=== PATIENT | male | born 1930 | race Caucasian/White ===

== ENCOUNTER 2016-12-20 01:11 | Inpatient (IN) | payer OTHER, BC ==
[2016-12-20] VITALS (7 sets, daily range): BP systolic 118–159; BP diastolic 54–89
[~2016-12-20] VITALS: Ht 193 cm; Wt 111.1 kg
--- NOTE | ~2016-12-20 | EKG ---
[address] [place] [address] ELECTROCARDIOGRAM REPORT Name: TINO ROMERO Room #: 460-P ADM IN M.R.#: [id number] Admission: 12/20/16 Attend Phys: Robi Resendez Discharge: Date of : 29 Report #: [id number] THIS REPORT FOR: //name// [facility] ED Test Date: 2016-12-20 Test Time: 01:29:05 Pat Name: TINO ROMERO Department: Room: [facility] Gender: M Director Employee Communications: [id number] : 1930 Requested By: Neri Rosas Order Number: [id number] MD: Luis Alberto Dick Measurements Intervals [place] Rate: 67 P: -8 [place]: 283 QRS: -42 QRSD: 145 T: 115 QT: 436 QTc: 461 Interpretive Statements Sinus rhythm Atrial premature complex Prolonged [place] interval Left bundle branch block Baseline wander in lead(s) V1 Compared to ECG 08/21/2016 11:09:28 Atrial premature complex(es) now present Ectopic atrial rhythm no longer present Ventricular premature complex(es) no longer present Electronically Signed On 12-20-2016 21:15:30 CDT by Luis Alberto Dick [email or web address] <ELECTRONICALLY SIGNED> By: Luis Alberto Dick MD 12/20/16 2115 8 8 Luis Alberto Dick MD /EPI
--- NOTE | ~2016-12-20 | H ---
[facility] [place] [address] HISTORY AND PHYSICAL Name: TINO ROMERO SOLIS Room #: 460-P ADM IN M.R.#: [id number] Admission: 12/20/16 Attend Phys: Robi Resendez Discharge: Date of : 29 Report #: [id number] THIS REPORT FOR: //name// CC: Charles Sethi DATE OF SERVICE: 12/20/2016 CHIEF COMPLAINT: Shortness of breath. HISTORY OF PRESENT ILLNESS: The patient is an 86-year-old gentleman with end-stage renal disease, who presented to the Emergency Room with shortness of breath. Symptoms began yesterday afternoon, when he just fell like he could not get a deep breath and was feeling weak. He could not lie flat in bed or on the couch and felt more short of breath and he had to sit up. He was breathing very heavily just walking across the room. It is noted that this is a acute change from baseline. He has been compliant with his 3 times a week dialysis by report and he also noted a slightly elevated blood pressure around 160/80 yesterday evening. He presented to the Emergency Room with chest x-ray has suggested pulmonary edema. 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 PAST SURGICAL HISTORY: He has had some orthopedic surgeries, cardiac bypass. Has had previous stents in 2004. He is an AV fistula. FAMILY HISTORY: Noncontributory. SOCIAL HISTORY: No known chronic alcohol or tobacco use. ALLERGIES: IODINE. MEDICATIONS: Zocor 10 mg, Plavix 75 mg, sodium bicarbonate 650 b.i.d., Colace, fish oil, Imdur 60 mg, Toprol-XL 25 mg, Renvela 800 mg with meals, Lantus 15 units at bedtime, vitamin C, Humalog 10-13 units with meals, Tylenol, tramadol 50 mg p.r.n. REVIEW OF SYSTEMS: Other than shortness of breath, denies headache, chest pain, abdominal pain, nausea, vomiting, diarrhea, constipation, dysuria, syncope or fall. PHYSICAL EXAMINATION: [facility] [address] [place] [address] HISTORY AND PHYSICAL Name: TINO ROMERO [facility] Room #: 460-P [facility] IN M.R.#: [id number] Admission: 12/20/16 Attend Phys: Robi Resendez Discharge: Date of : 29 Report #: [id number] VITAL SIGNS: Temperature 36.8, pulse 66, respirations 20, blood pressure 159/78, O2 sat 94% on 4 liters nasal cannula. GENERAL: He is awake and alert, in no distress. HEENT: Head and neck unremarkable. Somewhat hard of hearing. LUNGS: he has diminished breath sounds in the bases, clear to the upper bowen. HEART: Regular, no murmur. ABDOMEN: Soft, normoactive bowel sounds, obese. EXTREMITIES: No cyanosis, clubbing or edema. NEUROLOGIC: Global strength 4/5 throughout. LABORATORY DATA: Chest x-rays were reviewed. ASSESSMENT: 1. Acute pulmonary edema. 2. End-stage renal disease. 3. Pfelg-wl-ifzdjxf systolic congestive heart failure. 4. Cardiomyopathy, ejection fraction of 30-35%. 5. Diabetes type 2, insulin requiring. 6. Coronary artery disease. 7. Anemia of chronic disease. PLAN: He is on the schedule for dialysis today, it appears that he just has fluid overload. I think he has slightly elevated troponins and more likely related to heart failure, pulmonary edema and his renal disease. Continue home medications for now. <ELECTRONICALLY SIGNED> By: Johnie Moya MD 12/21/16 0929 0823 0909 Johnie Moya MD /nt
--- NOTE | ~2016-12-20 | HC ---
[facility] [place] [address] CONSULTATION Name: TINO ROMERO SOLIS Room #: 460-P [facility] IN M.R.#: [id number] Admission: 12/20/16 Attend Phys: Robi Resendez Discharge: Date of : 29 Report #: [id number] THIS REPORT FOR: //name// CC: Charles Campbell [facility] Drew Sethi DATE OF SERVICE: 12/20/2016 REASON FOR CONSULTATION: Volume overload with pulmonary edema in this patient with end-stage renal disease. HISTORY OF PRESENT ILLNESS: This 86-year-old male has been maintained on dialysis for approximately 3 years. He has an indwelling left upper arm AV fistula, but refuses to use this. He is dialyzed via a tunneled dialysis catheter. He usually dialyzes on Tuesday, Tuesday, and Tuesday at [facility]. The patient has been admitted previously in July of this year to [facility] for volume overload and respiratory insufficiency. He presented early on the day of admission with complaints of shortness of breath. Chest x-ray shows evidence of volume overload and he was admitted for further evaluation and treatment. The patient denies fevers, chills, sweats, productive cough, hemoptysis. He states that he has been eating regularly. He has been receiving his regular dialysis treatments as prescribed. PAST MEDICAL HISTORY: Remarkable for diabetes mellitus, TURP, coronary artery disease with previous stent placement. He has known dyslipidemia and an ischemic cardiomyopathy with an ejection fraction in the range of 30%. 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 MEDICATIONS ON ADMISSION: Include simvastatin, Plavix, sodium bicarbonate, Colace, fish oil, Imdur, Toprol, Renvela, Lantus, ascorbic acid, Humalog, Tylenol and Ultram. ALLERGIES: Reported to an antibacterial swab. He is unsure of the name. PERSONAL AND SOCIAL HISTORY: The patient does not smoke, use alcohol or have any history of substance abuse. FAMILY HISTORY: Remarkable for diabetes mellitus, but negative for renal disease. REVIEW OF SYSTEMS: Remarkable as described in the history of present illness. The patient denies fevers, chills, sweats or other constitutional complaints. He denies chest pain or palpitations. He denies nausea, vomiting, diarrhea or [address] [address] CONSULTATION Name: TINO ROMERO SOLIS Room #: 460-[facility] IN [facility]#: [id number] Admission: 12/20/16 Attend Phys: Robi Resendez Discharge: Date of : 29 Report #: [id number] constipation. PHYSICAL EXAMINATION: GENERAL: Reveals a well-developed, well-nourished male appearing his stated age, in no acute distress. VITAL SIGNS: Blood pressure 159/78, temperature 98.2, pulse 66. SKIN: Warm and dry without rash or erythema. There is no gross clubbing, cyanosis or adenopathy present. There is a trace of edema present. HEENT: The head is normocephalic and atraumatic. The sclerae are white. The pharynx is benign. NECK: Supple. LUNGS: Du reveal scattered rhonchi with minimal expiratory wheezes and basilar crackles bilaterally. CARDIAC: Reveals a regular rate and rhythm without rub. ABDOMEN: Soft and nontender, without palpable mass or organomegaly. NEUROLOGIC: Reveals the patient to be alert and cooperative with a nonfocal exam. LABORATORY STUDIES: Available at the time of consultation include sodium 138, potassium 6.1, chloride 101, CO2 27, BUN 93, creatinine 5.5, glucose 147. White blood cell count 9200, hemoglobin 10.9, hematocrit 32.1, platelet count 164,000. Chest x-ray reveals pulmonary vascular congestion with perihilar interstitial prominence consistent with mild congestive heart failure. ASSESSMENT: 1. End-stage renal disease, on maintenance hemodialysis. 2. Pulmonary vascular congestion with respiratory compromise in need of dialysis today. 3. Anemia of chronic kidney disease. 4. Diabetes mellitus. 5. Hypertension. PLAN: We will make arrangements for the patient to undergo emergent hemodialysis today. He is receiving respiratory treatments and supplemental oxygen. I expect his condition to improve promptly with dialysis today. Please see orders. <ELECTRONICALLY SIGNED> By: Drew Sethi MD 12/21/16 0607 0921 1153 Drew Sethi MD /nt
--- NOTE | ~2016-12-20 | D ---
[facility] [place] [address] DISCHARGE SUMMARY Name: TINO ROMERO SOLIS Room #: 460-P [facility] IN M.R.#: [id number] Admission: 12/20/16 Attend Phys: Robi Resendez Discharge: 12/21/16 Date of : 29 Report #: [id number] THIS REPORT FOR: //name// CC: Charles Sethi DATE OF SERVICE: 12/21/2016 FINAL DIAGNOSES: 1. Pulmonary edema. 2. End-stage renal disease. 3. Diabetes type 2. HOSPITAL COURSE: The patient was admitted with shortness of breath. X-ray revealed pulmonary edema. He was treated medically and stabilized overnight and then following day, he received hemodialysis. This improved his symptoms significantly. Oxygen was discontinued and he had an asymptomatic day and night following this. On the day of discharge, he was awake and alert with stable vital signs and O2 sats in the mid to upper 90s on room air. He felt like he was back to his baseline and wanted to return home. His usual scheduled dialysis is tomorrow. PHYSICAL EXAMINATION: LUNGS: Clear with no wheezing. HEART: Had regular sounds. ABDOMEN: Soft, obese. EXTREMITIES: Showed no edema. DISPOSITION: He will be discharged to home with diabetic renal diet and activity as tolerated, resume all same medications and his hemodialysis schedule and follow up with Dr. Campbell as needed. <ELECTRONICALLY SIGNED> By: Johnie Moya MD 12/22/16 1253 0943 1318 Johnie Moya MD /monse
[~2016-12-20 01:11] MED LIST: ACTOS15 MG PO; ADULT LOW DOSE81 MG PO; ALTACE10 M1 PO; AMARYL4 MG PO; AMINO-OPTI-C1000 MG PO; AMLODIPINE BESYL5 MG PO; ANTACID650 MG PO; APAP500 PO; ASCORBIC ACID500 MG PO; AUGMENTIN 875875 MG PO; CENTRUM SILVER1 EAC2 PO; CEPHALEXIN 250250 M1 PO; COLACE100 MG PO; DEX4 GLUCOSE1 EACH PO; FISH OIL 1,001000 M2 PO; FISHOIL PO; FUROSEMIDE 40 M40 M1 PO; HUMALOG100 UNIT/1 SUBQ; HYDROCODONE-AP1 EAC6 PO; IMDUR 30 MG TAB30 M1 PO; IMDUR 60 MG TAB60 M1 PO; LANTUS SC; LANTUS SUBQ; LANTUS100 UNIT/M SUBQ; LASIX PO; MULTIVITAMIN W1 EAC5 PO; NEPHRO-VITE RX1 TA1 PO; NEPHROCAPS SOFT1 CAP PO; NITROGLYCERIN0.4 MG SL; NORCO 5-325 TA1 EACH PO; NORVASC 5 MG TAB5 MG PO; NORVASC10 MG PO; NOVOLOG100 UNIT/1; NOVOLOG100 UNIT/1 SC; NOVOLOG100 UNIT/1 SUBQ; OXYCODONE HCL5 M1 PO; PENICILLIN VK500 M1 PO; PLAVIX 75 MG TA75 MG PO; RENVELA800 MG PO; TOPROL XL25 MG PO; TRAMADOL 50 MG50 MG PO; ULTRAM 50MG TAB50 MG PO; VITAMINC500 PO; XANAX 0.25 MG0.25 MG PO; ZETIA10 MG PO; ZOCOR 10 MG TAB10 M1 PO; ZOCOR 10 MG TAB10 MG PO; ZOCOR80 MG PO
[2016-12-20 01:34] LABS: ABG SAMPLE TYPE ARTERIAL; BE(vivo) -0.3 mmol/L (-2 to +3); HCO3 24.2 mmol/L (22.0-26.0); LACTATE 1.74 mmol/L (0.5-2.0); O2(CT) 15.9 mL/dL (15.0-23.0); O2Hb 97.4 % (92.0-98.0); PCO2 39.1 mmHg (35.0-45.0); PO2 117.6 mmHg (80.0-100.0); STICK SITE R.RADIAL; pH 7.409 (7.360-7.450); sO2 98.3 % (92.0-98.0); tCO2 25.4 mmol/L (24.0-30.0)
[2016-12-20 01:44] LABS: ABSOLUTE NEUTROPHILS 7.4 thou/uL (1.4-8.2); BASOPHILS 0.4 % (0.0-2.0); EOSINOPHILS 2.4 % (0.0-3.0); HEMATOCRIT 32.1 % (42.0-52.0); HEMOGLOBIN 10.9 gm/dL (14.0-18.0); LYMPHOCYTES 12.1 % (24.0-44.0); MCH 33.5 pg (26.0-34.0); MCHC 33.8 g/dL (28.0-37.0); MCV 99.2 fL (80.0-100.0); MONOCYTES 4.4 % (1.0-8.0); PLATELET COUNT 164 thou/uL (150-400); POLYS 80.7 % (36.0-66.0); RBC 3.24 mil/uL (4.50-6.00); RDW 14.9 % (10.5-14.5); WBC 9.2 thou/uL (4.0-11.0)
[2016-12-20 01:45] LABS: MANUAL DIFF NO
[2016-12-20 01:57] LABS: APTT 27.5 Seconds (24.5-32.8); PROTIME 10.7 Seconds (9.3-11.4)
[2016-12-20 02:11] LABS: ALBUMIN 3.2 g/dL (3.4-5.0); CALCIUM 9.1 mg/dL (8.5-10.1); CK-MB MASS 4.7 ng/mL (<0.5-3.6); CREATININE 5.5 mg/dL (0.7-1.3); MAGNESIUM 2.2 mg/dL (1.8-2.4); TOTAL BILIRUBIN 0.3 mg/dL (<0.1-1.0); TOTAL PROTEIN 6.8 g/dL (6.4-8.2); TROPONIN-I 0.13 ng/mL (<0.04-0.07)
[2016-12-20 02:13] LABS: POTASSIUM 6.1 mmol/L (3.5-5.1)
[2016-12-21 03:46] VITALS: BP 128/74
[2016-12-21 04:47] LABS: HEMOGLOBIN 10.5 gm/dL (14.0-18.0); MCHC 34.9 g/dL (28.0-37.0); MCV 97.6 fL (80.0-100.0); RBC 3.07 mil/uL (4.50-6.00); RDW 14.9 % (10.5-14.5); WBC 6.8 thou/uL (4.0-11.0)
[2016-12-21 04:55] LABS: ALBUMIN 3.1 g/dL (3.4-5.0); CALCIUM 8.9 mg/dL (8.5-10.1); PHOSPHORUS 4.1 mg/dL (2.5-4.9); POTASSIUM 4.8 mmol/L (3.5-5.1)
[2016-12-21 04:58] LABS: CREATININE 3.8 mg/dL (0.7-1.3)
[2016-12-21 07:46] VITALS: BP 94/52
[2016-12-21 09:37] VITALS: BP 94/52
== END 2016-12-21 10:34 | disposition home or self-care (01) | DRG 291 ==
LOC: ER 01:11 → EROBS 02:30 → 4W 02:30
PROVIDERS: Emergency Medicine; Internal Medicine Nephrology
PROC: 5A1D00Z (ICD-10-PCS; principal; 2016-12-20)
DX: I50.23 Acute on chronic systolic (congestive) heart failure (principal); N18.6 End stage renal disease; I13.2 Hypertensive heart and chronic kidney disease with heart failure and with stage 5 chronic kidney disease, or end stage renal disease; E11.22 Type 2 diabetes mellitus with diabetic chronic kidney disease; M19.90 Unspecified osteoarthritis, unspecified site; I25.10 Atherosclerotic heart disease of native coronary artery without angina pectoris; E78.5 Hyperlipidemia, unspecified; E87.5 Hyperkalemia; D63.1 Anemia in chronic kidney disease; I25.5 Ischemic cardiomyopathy; Z95.1 Presence of aortocoronary bypass graft; I25.2 Old myocardial infarction; Z89.439 Acquired absence of unspecified foot; Z87.81 Personal history of (healed) traumatic fracture; Z98.42 Cataract extraction status, left eye; Z79.4 Long term (current) use of insulin; Z99.2 Dependence on renal dialysis; Z98.41 Cataract extraction status, right eye; Z88.8 Allergy status to other drugs, medicaments and biological substances; Z98.62 Peripheral vascular angioplasty status; Z83.3 Family history of diabetes mellitus
CPT/HCPCS: 10045; 32100

== ENCOUNTER 2017-09-05 06:20 | Inpatient (IN) | payer OTHER, BC ==
[~2017-09-05] VITALS: Ht 190.5 cm; Wt 109.5 kg
--- NOTE | ~2017-09-05 | EKG ---
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 09/05/17 0747 0633 2 Tuan Muñoz MD, FACC /EPI
--- NOTE | ~2017-09-05 | D ---
[facility] [place] [address] DISCHARGE SUMMARY Name: TINO ROMERO Room #: 218-P [facility] IN M.R.#: [id number] Admission: 09/05/17 Attend Phys: Johnie Moya MD Discharge: Date of : 29 Report #: [id number] THIS REPORT FOR: //name// CC: Charles Moya FINAL DIAGNOSES: 1. Acute congestive heart failure. 2. End-stage renal disease. 3. Chronic obstructive pulmonary disease. 4. Diabetes type 2. HOSPITAL COURSE: The patient was admitted with pulmonary edema. He received hemodialysis, which seemed to resolve his symptoms. He had no other interval complications and usual home medications were continued. PHYSICAL EXAMINATION: GENERAL: On the day of discharge, he was awake and alert with stable vital signs. He was not requiring oxygen and was lying flat in bed. O2 sat 95% on room air. LUNGS: Clear. HEART: Regular. ABDOMEN: Soft, normoactive bowel sounds. EXTREMITIES: No edema. DISPOSITION: He will be discharged home with diet and activity as tolerated. Renal diabetic diet. Follow up with Dr. Campbell as needed, outpatient hemodialysis tomorrow. DISCHARGE MEDICATIONS: Same medicines plus Ventolin HFA 2 puffs q.6 hours p.r.n. <ELECTRONICALLY SIGNED> By: Johnie Moya MD 09/06/17 1322 0955 1025 Johnie Moya MD /nt
--- NOTE | ~2017-09-05 | H ---
[facility] [place] [address] HISTORY AND PHYSICAL Name: TINO ROMERO Room #: 218-P [facility] IN M.R.#: [id number] Admission: 09/05/17 Attend Phys: Johnie Moya MD Discharge: 09/06/17 Date of : 29 Report #: [id number] THIS REPORT FOR: //name// CC: Charles Moya DATE OF SERVICE: 09/05/2017 CHIEF COMPLAINT: Shortness of breath. HISTORY OF PRESENT ILLNESS: The patient is an 87-year-old gentleman with a history of end-stage renal disease, who came in to the Emergency Room with shortness of breath. It has been progressing over the weekend. He is denying any fever, chills, productive cough or weight gain. He went to his dialysis normally as an outpatient in [place], [place] on Tuesday. 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 He has had some toe amputations, remote history of nephropathy and history of [place]. PAST SURGICAL HISTORY: As above. FAMILY HISTORY: Noncontributory. SOCIAL HISTORY: He lives with his son. No chronic alcohol or tobacco use. ALLERGIES: IODINE. MEDICATIONS: Plavix, Colace, Humalog, Toprol, Imdur, Lantus, Keflex, folic acid, Zocor, sodium bicarbonate, Xanax, Tylenol and tramadol. REVIEW OF SYSTEMS: Denies headache, chest pain, shortness of breath, abdominal pain, nausea, vomiting, constipation, dysuria or syncope. PHYSICAL EXAMINATION: VITAL SIGNS: Temperature 36.9, pulse 81, respirations 16, blood pressure 153/84, O2 sat 97% on room air. GENERAL: He is awake and alert, in no distress. LUNGS: Clear. HEART: Regular. ABDOMEN: Soft. Normoactive bowel sounds. EXTREMITIES: No edema. LABS AND X-RAY: Reviewed. [facility] [place] [address] HISTORY AND PHYSICAL Name: TINO ROMERO Room #: 218-P [facility] IN M.R.#: [id number] Admission: 09/05/17 Attend Phys: Johnie Moya MD Discharge: 09/06/17 Date of : 29 Report #: [id number] ASSESSMENT: 1. End-stage renal disease. 2. Pulmonary edema. 3. Cardiomyopathy, ejection fraction 30%. 4. Coronary artery disease. 5. Diabetes type 2. 6. Chronic obstructive pulmonary disease. PLAN: He is undergoing hemodialysis currently. I will continue his home medications and get therapy involved. We will see if he can turn around for home soon. <ELECTRONICALLY SIGNED> By: Johnie Moya MD 09/21/17 1208 1252 1326 Johnie Moya MD /monse
--- NOTE | ~2017-09-05 | HC ---
[facility] [place] [address] CONSULTATION Name: TINO ROMERO Room #: 218-P [facility] IN M.R.#: [id number] Admission: 09/05/17 Attend Phys: Johnie Moya MD Discharge: 09/06/17 Date of : 29 Report #: [id number] THIS REPORT FOR: //name// CC: Charles Moya DATE OF SERVICE: 09/05/2017 REASON FOR CONSULTATION: End-stage renal disease and congestive heart failure. HISTORY OF PRESENT ILLNESS: An 87-year-old chronic dialysis patient, dialyzing 3 times a week at [place]. Last dialyzed 3 days ago. He became short of breath with orthopnea. He was brought up here to the emergency room instead of going to his dialysis treatment. He was found to have pulmonary edema and hyperkalemia. PAST MEDICAL HISTORY: End-stage renal disease, diabetes mellitus with triopathy including peripheral neuropathy, retinopathy, status post laser surgery. He has had previous transurethral resection of the prostate. He has had previous coronary artery disease with PCI and stent placement and ischemic cardiomyopathy and decreased ejection fraction previously documented to be 30% range. He has also had partial right foot amputation with osteomyelitis. HOME MEDICATIONS: As listed include calcium acetate 1 with meals t.i.d., apparently he has been on cephalexin, Plavix 75 mg daily, fish oil, insulin, metoprolol XL 25 mg daily, Renvela 1 with meals t.i.d., simvastatin 10 mg daily, bicarbonate tablets, and tramadol. FAMILY HISTORY: Positive for diabetes. SOCIAL HISTORY: No cigarettes or alcohol. REVIEW OF SYSTEMS: GENERAL: He has been feeling a bit poorly, short winded with decreased stamina. EYES: Vision is poor. ENT: Hearing is very poor. Swallows okay. No mouth ulcers. ENDOCRINE: Positive for diabetes. RESPIRATORY: Quite short-winded with orthopnea. GASTROINTESTINAL: No nausea, vomiting, diarrhea, or bloody stools. GENITOURINARY: Does not make much urine. NEUROLOGIC: He has got numbness and tingling and pain in his feet. physical examination: GENERAL: This is a somewhat ill-appearing, overweight gentleman, in no acute distress. SKIN: Unremarkable. [facility] [address] [place] [address] CONSULTATION Name: TINO ROMERO Room #: 218-P [facility] IN M.R.#: [id number] Admission: 09/05/17 Attend Phys: Johnie Moya MD Discharge: 09/06/17 Date of : 29 Report #: [id number] SKELETAL: Well developed, well nourished. HEENT: Extraocular movements are full. Vision is poor. Hearing is poor. Mucous membranes moist. NECK: Veins slightly distended. CHEST: Shows crackles at the lung bases. HEART: Regular. ABDOMEN: Soft and nontender. EXTREMITIES: Show no peripheral edema. Left arm fistula noted. NEUROLOGIC: Shows numbness of the distal lower extremities. LABORATORY DATA: Hemoglobin is 10.8. Sodium 139, potassium 6, chloride 104, bicarbonate 26, BUN 79, and creatinine 5.8. ASSESSMENT: 1. Heart failure with reduced ejection fraction, he is fluid overload, he is a dialysis patient and there is likely some dietary indiscretion. I will order ultrafiltration dialysis, reevaluate for possible dialysis again tomorrow. 2. Hyperkalemia. We will treat with a 2 potassium bath, I have already given him some albuterol inhalation treatment. EKG looked okay. 3. Diabetes mellitus with triopathy. 4. Ischemic cardiomyopathy with decreased ejection fraction. 5. History of hypertension. <ELECTRONICALLY SIGNED> By: Keven Schmid MD 09/09/17 0823 0955 1425 Keven Schmid MD /nt
[2017-09-05 06:22] VITALS: BP 155/69
[2017-09-05] MEDS ORDERED: KEFLEX250 MG PO (06:51)
[2017-09-05] MEDS ORDERED: [UNRECOGNIZED DRUG - OTHER] (06:51)
[2017-09-05] MEDS ORDERED: FOLIC ACID1 MG PO (06:52)
[2017-09-05] MEDS ORDERED: FISH OIL 1,001000 M2 PO (06:52)
[2017-09-05] MEDS ORDERED: NEPROVITE PO (06:55)
[2017-09-05] MEDS ORDERED: CALCIUM ACETAT667 M2 PO (06:58)
[2017-09-05] MEDS ORDERED: ZOCOR20 MG PO (07:00)
[2017-09-05] MEDS ORDERED: SODIUM BICARBO650 M3 PO (07:01)
[2017-09-05 07:15] LABS: ABSOLUTE NEUTROPHILS 7.4 thou/uL (1.4-8.2); EOSINOPHILS 0.8 % (0.0-3.0); HEMATOCRIT 31.8 % (42.0-52.0); HEMOGLOBIN 10.8 gm/dL (14.0-18.0); LYMPHOCYTES 9.3 % (24.0-44.0); MCH 33.7 pg (26.0-34.0); MCHC 33.8 g/dL (28.0-37.0); MCV 99.5 fL (80.0-100.0); PLATELET COUNT 149 thou/uL (150-400); POLYS 82.9 % (36.0-66.0); RDW 14.6 % (10.5-14.5); WBC 8.9 thou/uL (4.0-11.0)
[2017-09-05 07:22] LABS: CALCIUM 8.5 mg/dL (8.5-10.1); CREATININE 5.8 mg/dL (0.7-1.3)
[2017-09-05 07:30] LABS: TROPONIN-I 0.1 ng/mL (<0.06)
[2017-09-05 09:40] VITALS: BP 153/84
[2017-09-05] MEDS ORDERED: XANAX 0.25 MG0.25 MG PO (09:54)
[2017-09-05 10:13] VITALS: BP 154/70
[2017-09-05 15:21] VITALS: BP 137/70
[2017-09-05 19:11] VITALS: BP 152/78
[2017-09-06 00:11] VITALS: BP 129/79
[2017-09-06 03:47] VITALS: BP 140/61
[2017-09-06 03:50] LABS: CALCIUM 8.5 mg/dL (8.5-10.1); POTASSIUM 5.1 mmol/L (3.5-5.1)
[2017-09-06 03:51] LABS: CREATININE 4.3 mg/dL (0.7-1.3)
[2017-09-06 07:30] VITALS: BP 148/47
[2017-09-06] MEDS ORDERED: RENVELA800 MG PO (09:52)
[2017-09-06] MEDS ORDERED: ANTACID650 MG PO (09:52)
[2017-09-06] MEDS ORDERED: VENTOLIN HFA 1818 GM INH (09:52)
[2017-09-06] MEDS ORDERED: ZOCOR 10 MG TAB10 MG PO (09:52)
[2017-09-06 11:47] VITALS: BP 148/47
[2017-09-06 11:48] VITALS: BP 149/72
== END 2017-09-06 13:35 | disposition home or self-care (01) | DRG 291 ==
LOC: ER 06:20 → 2N 07:51 → EROBS 07:51 → 2N 11:57 → ENTRNSPT 09-06 13:25 → EDTRNSPTSTS 09-06 13:26 → 2N 09-06 13:35
PROVIDERS: Emergency Medicine; Internal Medicine Nephrology
PROC: 5A1D70Z Performance of Urinary Filtration, Intermittent, Less than 6 Hours Per Day (ICD-10-PCS; principal; 2017-09-05)
PROC: 5A1D70Z Performance of Urinary Filtration, Intermittent, Less than 6 Hours Per Day (ICD-10-PCS; 2017-09-06)
DX: I13.2 Hypertensive heart and chronic kidney disease with heart failure and with stage 5 chronic kidney disease, or end stage renal disease (principal); N18.6 End stage renal disease; E11.42 Type 2 diabetes mellitus with diabetic polyneuropathy; E11.319 Type 2 diabetes mellitus with unspecified diabetic retinopathy without macular edema; I50.9 Heart failure, unspecified; I25.10 Atherosclerotic heart disease of native coronary artery without angina pectoris; E78.5 Hyperlipidemia, unspecified; M19.90 Unspecified osteoarthritis, unspecified site; I25.5 Ischemic cardiomyopathy; E11.22 Type 2 diabetes mellitus with diabetic chronic kidney disease; E87.5 Hyperkalemia; N18.9 Chronic kidney disease, unspecified; J44.9 Chronic obstructive pulmonary disease, unspecified; Z90.79 Acquired absence of other genital organ(s); Z87.81 Personal history of (healed) traumatic fracture; Z95.5 Presence of coronary angioplasty implant and graft; Z98.42 Cataract extraction status, left eye; Z98.41 Cataract extraction status, right eye; Z99.3 Dependence on wheelchair; I25.2 Old myocardial infarction; Z89.421 Acquired absence of other right toe(s); Z79.02 Long term (current) use of antithrombotics/antiplatelets; Z79.4 Long term (current) use of insulin; Z79.899 Other long term (current) drug therapy; Z88.8 Allergy status to other drugs, medicaments and biological substances; Z91.048 Other nonmedicinal substance allergy status; Z99.2 Dependence on renal dialysis; Z83.3 Family history of diabetes mellitus
CPT/HCPCS: 10081; 32100

== ENCOUNTER 2018-05-30 10:24 | Inpatient (IN) | payer OTHER, BC ==
[~2018-05-30] VITALS: Ht 190.5 cm; Wt 113.5 kg
--- NOTE | ~2018-05-30 | EKG ---
[place] [address] [facility] [place] [address] ELECTROCARDIOGRAM REPORT Name: TINO ROMERO Room #: 170-1 ADM IN M.R.#: [id number] Admission: 05/30/18 Attend Phys: Robi Resendez Discharge: Date of : 29 Report #: [id number] THIS REPORT FOR: //name// 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 Tiler: GENEVIEVE : 1930 Requested By: Shara Fermin Order Number: [id number] MD: Salvatore Echavarria Measurements Intervals [place] Rate: 68 P: -47 [place]: 285 QRS: -45 QRSD: 142 T: 129 QT: 454 QTc: 483 Interpretive Statements Sinus with 1st degree heart block Ventricular premature complex Left bundle branch block Compared to ECG 09/05/2017 06:33:31 Ventricular premature complex(es) now present Electronically Signed On 05-30-2018 13:38:12 VICE PRESIDENT SUPPLY CHAIN by Salvatore Echavarria [email or web address] <ELECTRONICALLY SIGNED> By: Salvatore Echavarria MD 05/30/18 1338 1034 1034 Salvatore Echavarria MD /EPI
--- NOTE | ~2018-05-30 | H ---
[facility] [place] [address] HISTORY AND PHYSICAL Name: TINO ROMERO Room #: 364-P ADM IN M.R.#: [id number] Admission: 05/30/18 Attend Phys: Robi Resendez Discharge: Date of : 29 Report #: [id number] THIS REPORT FOR: //name// CC: Charles Campbell DATE OF SERVICE: 05/30/2018 CHIEF COMPLAINT: Cough. HISTORY OF PRESENT ILLNESS: The patient is an 88-year-old gentleman with history of end-stage renal disease, came to the Emergency Room with shortness of breath and cough. His son gives most of the details and states he has got a dry cough for about a month. However, in the last day or two, it has become congested and moist. He is unable to produce any sputum, but he has an audible cough. He has been more short of breath, dizzy and weak, especially yesterday after hemodialysis. There are no reports of fever. PAST MEDICAL HISTORY: End-stage renal disease, on hemodialysis. Diabetes type 2, insulin requiring. Peripheral neuropathy, coronary artery disease with history of stent in 2004. Osteoarthritis, cardiomyopathy, EF 30% . Parotid tumor resection in 2007, anemia of chronic disease. He has had some toe amputations on the right foot due to osteomyelitis, remote history of [place] in 2004. PAST SURGICAL HISTORY: As above. FAMILY HISTORY: Noncontributory. SOCIAL HISTORY: Lives with his son. No chronic alcohol or tobacco use. ALLERGIES: BETADINE. MEDICATIONS: Plavix, Colace, Humalog, Toprol, Imdur, Lantus, folate, calcium, Zocor, sodium bicarbonate, Xanax, tramadol. REVIEW OF SYSTEMS: He denies headache, chest pain, shortness of breath, abdominal pain, nausea, vomiting, diarrhea, constipation, dysuria, syncope. OBJECTIVE: VITAL SIGNS: Temperature 36.4, pulse 55, respirations 25, blood pressure 145/80, O2 sat 98% on 2 liters nasal cannula. GENERAL: He is awake and alert, in no distress, hard of hearing. LUNGS: Have some crackles in the right base. HEART: Regular, no murmur. ABDOMEN: Obese, soft, normoactive bowel sounds. EXTREMITIES: No edema. [address] [address] HISTORY AND PHYSICAL Name: TINO ROMERO Room #: 364-P ADM IN M.R.#: [id number] Admission: 05/30/18 Attend Phys: Robi Resendez Discharge: Date of : 29 Report #: [id number] NEUROLOGIC: Moves all extremities, global strength 4/5, intact throughout. LABORATORY DATA: Reviewed. CT chest suggested a right infrahilar or perihilar infiltrate. ASSESSMENT: 1. Pneumonia. 2. End-stage renal disease. 3. Diabetes type 2. 4. Mild protein-calorie malnutrition. 5. Anemia of chronic disease. PLAN: He will be admitted for treatment of pneumonia and pulmonary consideration to review findings. We will see if x-ray or CT improves with treatment. Also, need to rule out aspiration given his advanced age and right-sided infiltrate. Routine hemodialysis and continue usual medications. Lovenox for DVT prophylaxis. <ELECTRONICALLY SIGNED> By: Johnie Moya MD 05/31/18 0912 1609 1640 Johnie Moya MD /nt
--- NOTE | ~2018-05-30 | HC ---
[facility] [place] [address] CONSULTATION Name: TINO ROMERO Room #: 364-P ADM IN M.R.#: [id number] Admission: 05/30/18 Attend Phys: Robi Resendez Discharge: Date of : 29 Report #: [id number] THIS REPORT FOR: //name// CC: Charles Campbell TYPE OF REPORT: Pulmonary consultation. REFERRING PHYSICIAN: Johnie Moya M.D. REASON FOR REFERRAL: Dyspnea. HISTORY OF PRESENT ILLNESS: The patient is an 88-year-old white male who was admitted with progressive dyspnea. A Pulmonary consultation was requested. The patient has end-stage renal disease. He undergoes hemodialysis. On the day of admission, the patient had complained of being congested, more dyspneic than usual. For that reason, he was admitted. Chest x-ray shows increased interstitial markings suggestive of congestive heart failure. The patient has had a mild cough over the past month. That is mild nonproductive. He also complained of congestion. He has a history of allergic rhinitis. Otherwise, denies any chest pain or hemoptysis. 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 PAST SURGICAL HISTORY: As mentioned above. ALLERGIES: To BETADINE, reaction not specified. CURRENT MEDICATIONS: List reviewed in the MAR. FAMILY HISTORY: Noncontributory. SOCIAL HISTORY: Denies any tobacco or alcohol use. He lives with his son. REVIEW OF SYSTEMS: As mentioned above, otherwise 10-point system review negative. PHYSICAL EXAMINATION: GENERAL: He is awake and alert, resting comfortably at present. VITAL SIGNS: Temperature is 98 degrees Fahrenheit, pulse is 65, respiratory [facility] [address] [place] [address] CONSULTATION Name: TINO ROMERO Room #: 364-P [facility] IN .R.#: [id number] Admission: 05/30/18 Attend Phys: Robi Resendez Discharge: Date of : 29 Report #: [id number] rate 25, blood pressure 140/80 mmHg and saturation 98%. HEENT: Normocephalic and atraumatic. NECK: Supple, without any lymphadenopathy or thyromegaly. CHEST: Breath sounds are good with few scattered crackles. No wheezes. CARDIOVASCULAR: Normal S1 and S2. There is no murmur. There is no gallop. There is no JVD. There is no carotid bruit. Pulses are 2+/4+ bilaterally. ABDOMEN: Soft and nontender. No organomegaly or masses felt. GENITOURINARY: Deferred. RECTAL: Deferred. EXTREMITIES: There is no edema, cyanosis or clubbing. RADIOLOGICAL DATA: Portable chest x-ray again as mentioned above showing increased interstitial markings consistent with heart failure. He does have similar findings on prior chest x-rays. CT chest shows mild small bilateral pleural effusion, patchy nodular opacities with ground glass appearance, mild right hilar density is suggested. LABORATORY DATA: Electrolytes: Sodium 137, potassium 4.7, chloride 96, CO2 is 33, BUN is 50 and creatinine is 5.1. Liver enzymes are mildly abnormal. WBC 5600, hemoglobin is 12 and platelets are normal. Albumin 3.2. IMPRESSION: 1. Progressive dyspnea in this 88-year-old white male. Chest x-ray shows increased interstitial markings. Probably volume overload, acute on chronic systolic heart failure as a cause. Pneumonia cannot be ruled out. 2. Increased interstitial markings, CT chest showing ground glass opacities, question pneumonia as mentioned above. 3. End-stage renal disease, on hemodialysis. 4. Coronary artery disease, ischemic cardiomyopathy, probable acute on chronic systolic heart failure. 5. Diabetes mellitus type 2. 6. History of allergic rhinitis wonder whether allergies may be contributing to some of his symptoms such as a persistent nonproductive cough. RECOMMENDATIONS: Agree with current treatment plans including broad-spectrum antibiotics, antihistamine and short course of corticosteroids. A followup chest x-ray. Thank you for this consultation. <ELECTRONICALLY SIGNED> By: Syed Lanza MD 06/01/18 1757 1800 0240 Syed Lanza MD /nt
--- NOTE | ~2018-05-30 | D ---
[facility] [place] [address] [place] [address] DISCHARGE SUMMARY Name: TINO ROMERO Room #: 364-P [facility] IN M.R.#: [id number] Admission: 05/30/18 Attend Phys: Robi Resendez Discharge: 06/05/18 Date of : 29 Report #: [id number] THIS REPORT FOR: //name// CC: Charles Campbell DATE OF SERVICE: 06/05/2018 FINAL DIAGNOSES: 1. Pulmonary edema. 2. Fluid overload. 3. End-stage renal disease. 4. Diabetes type 2. HOSPITAL COURSE: The patient was admitted with shortness of breath and x-ray and CT were suggestive of a right-sided infiltrate. He was treated with empiric antibiotics, but did not have any fever or elevated white count. He was treated with extra ultrafiltration via dialysis access, which helped with pulmonary edema. His symptoms were much improved with an extra dialysis session. His x-ray was still showing some congestion, but clinically, he was improved. Antibiotics were discontinued and he was treated conservatively, otherwise. PHYSICAL EXAMINATION: GENERAL: On the day of discharge, he was awake and alert, stable, off supplemental oxygen. VITAL SIGNS: Stable according to the nursing record. LUNGS: Clear. HEART: Regular. ABDOMEN: Soft, normoactive bowel sounds. EXTREMITIES: No edema. DISPOSITION: He is discharged to home with diet and activity as tolerated, to resume all usual medications. Renal diet outpatient dialysis. Follow up as needed. <ELECTRONICALLY SIGNED> By: Johnie Moya MD 06/06/18 1006 1251 1607 Johnie Moya MD /nt
--- NOTE | ~2018-05-30 | HC ---
[facility] [place] [address] CONSULTATION Name: TINO ROMERO Room #: 364-P ADM IN M.R.#: [id number] Admission: 05/30/18 Attend Phys: Robi Resendez Discharge: Date of : 29 Report #: [id number] THIS REPORT FOR: //name// CC: Charles Campbell REASON FOR CONSULTATION: End-stage renal disease. REASON FOR PRESENTATION: Shortness of breath. HISTORY OF PRESENT ILLNESS: An 88-year-old with past medical history of end-stage renal disease, maintained on hemodialysis every Tuesday, Tuesday and Tuesday. Apparently, the patient goes to [facility]. He has been here on numerous occasions in the past back in 2017. We have evaluated him on numerous occasions for many issues. He had been having some issues with shortness of breath and presented to the Emergency Room for further evaluation and management. The patient denies any fever or chills. He tells me that he is not missing any of his dialysis treatment. He has severe ischemic cardiomyopathy. He has a functioning left AV fistula that he is refusing to utilize. He is currently dialyzing utilizing a tunneled IJ catheter. He was admitted for further evaluation and management after his CT showed a possible pneumonitis and I am being consulted to manage his dialysis needs. PAST MEDICAL HISTORY: 1. End-stage renal disease. 2. Diabetes mellitus. 3. Coronary artery disease. 4. Hyperlipidemia. 5. Cardiomyopathy with ejection fraction of 30%. 6. Partial right toe amputation due to osteomyelitis. 7. Diabetic neuropathy. 8. Diabetic retinopathy. 9. Ankle fracture. 10. Parotid tumor removal. 11. Anemia. MEDICATIONS: 1. Plavix. 2. Isosorbide mononitrate. 3. Lantus. 4. Sodium bicarbonate. 5. Metoprolol. 6. Tramadol. ALLERGIES: POVIDONE IODINE. SOCIAL HISTORY: He lives with his son. No drug or alcohol abuse. [facility] [address] [place] [address] CONSULTATION Name: TINO ROMERO Room #: 364-P [facility] IN ..#: [id number] Admission: 05/30/18 Attend Phys: Robi Resendez Discharge: Date of : 29 Report #: [id number] FAMILY HISTORY: The patient is not able to provide family history. REVIEW OF SYSTEMS: It does look like that the patient has baseline dementia and he is not able to provide me with a detailed review of systems. PHYSICAL EXAMINATION: GENERAL: He is alert, awake. VITAL SIGNS: Temperature is 36.6, blood pressure is 125/70. HEAD AND NECK: No jugular venous distention. CHEST: Bilateral crackles present. CARDIOVASCULAR: No rub detected. ABDOMEN: Soft, nontender with no hepatosplenomegaly. LOWER EXTREMITIES: No edema with intact peripheral pulses. Old amputation. LABORATORY DATA: Reviewed. Sodium 137, potassium 4.9, BUN 50, creatinine 5.1. Chest x-ray reviewed, mild pulmonary congestion. Chest CT is reviewed, there is a right infrahilar nodular opacity. ASSESSMENT, IMPRESSION AND PLAN: 1. End-stage renal disease. 2. Diabetes mellitus. 3. Cardiomyopathy. 4. Hypertension. 5. Hyperlipidemia. 6. We will arrange for the patient to have his usual hemodialysis every Tuesday, Tuesday and Tuesday. Admitting team is managing his potential pneumonitis with appropriate antibiotic. 7. Resume his outpatient medications related to his kidney disease other than sodium bicarbonate, which will be discontinued. 8. I attempted to reach out to his family members to discuss his care; however, there was no answer and I left a detailed message. <ELECTRONICALLY SIGNED> By: Sonja Red MD 06/01/1831 4 25 Sonja Red MD /nt
[~2018-05-30 10:24] MED LIST changes: +CALCIUM ACETAT667 M2 PO; +FOLIC ACID1 MG PO; +KEFLEX250 MG PO; +NEPROVITE PO; +SODIUM BICARBO650 M3 PO; +VENTOLIN HFA 1818 GM INH; +ZOCOR20 MG PO; +[UNRECOGNIZED DRUG - OTHER]
[2018-05-30 10:25] VITALS: BP 144/82
[2018-05-30 10:56] LABS: ABSOLUTE NEUTROPHILS 4.3 thou/uL (1.4-8.2); BASOPHILS 0.4 % (0.0-2.0); EOSINOPHILS 0.9 % (0.0-3.0); HEMATOCRIT 35.7 % (42.0-52.0); LYMPHOCYTES 16.6 % (24.0-44.0); MCH 32.7 pg (26.0-34.0); MCHC 33.5 g/dL (28.0-37.0); MCV 97.6 fL (80.0-100.0); MONOCYTES 5.4 % (1.0-8.0); PLATELET COUNT 163 thou/uL (150-400); POLYS 76.7 % (36.0-66.0); RBC 3.66 mil/uL (4.50-6.00); RDW 15.7 % (10.5-14.5); WBC 5.6 thou/uL (4.0-11.0)
[2018-05-30 11:07] LABS: CREATININE 5.1 mg/dL (0.7-1.3)
[2018-05-30 11:08] LABS: POTASSIUM 4.9 mmol/L (3.5-5.1)
[2018-05-30 11:17] LABS: ALBUMIN 3.2 g/dL (3.4-5.0); TOTAL BILIRUBIN 0.5 mg/dL (<0.1-1.0); TOTAL PROTEIN 7.6 g/dL (6.4-8.2); TROPONIN-I 0.08 ng/mL (<0.06)
[2018-05-30] MEDS ORDERED: ANTACID650 MG PO (13:54)
[2018-05-30] MEDS ORDERED: FISH OIL 1,001000 M2 PO (13:55)
[2018-05-30] MEDS ORDERED: TOPROL XL25 MG PO (13:56)
[2018-05-30] MEDS ORDERED: KEFLEX250 M1 PO (13:56)
[2018-05-30] MEDS ORDERED: TYLENOL EXTRA500 MG PO ×2 (13:57)
[2018-05-30] MEDS ORDERED: VITAMINC500 PO (13:58)
[2018-05-30 15:37] VITALS: BP 145/80
[2018-05-30 16:35] VITALS: BP 145/94
[2018-05-30 16:45] VITALS: BP 123/72
[2018-05-30 19:54] VITALS: BP 127/69
[2018-05-30 23:45] VITALS: BP 127/71
[2018-05-31 05:00] VITALS: BP 125/70
[2018-05-31 07:40] VITALS: BP 171/100
[2018-05-31 10:30] VITALS: BP 154/90
[2018-05-31 11:58] VITALS: BP 162/97
[2018-05-31 20:06] VITALS: BP 126/68
[2018-06-01 04:13] VITALS: BP 150/97
[2018-06-01 07:59] VITALS: BP 147/79
[2018-06-01 19:30] VITALS: BP 131/65
[2018-06-02 03:07] LABS: HEPATITIS B SURFACE AG Negative (Negative)
[2018-06-02 05:00] VITALS: BP 119/63
[2018-06-02 05:35] LABS: HEMOGLOBIN 11.5 gm/dL (14.0-18.0); MCH 32.8 pg (26.0-34.0); MCHC 33.8 g/dL (28.0-37.0); RBC 3.5 mil/uL (4.50-6.00); RDW 15.6 % (10.5-14.5); WBC 7.2 thou/uL (4.0-11.0)
[2018-06-02 05:45] LABS: CALCIUM 8.1 mg/dL (8.5-10.1); POTASSIUM 5.2 mmol/L (3.5-5.1)
[2018-06-02 05:48] LABS: CREATININE 6.2 mg/dL (0.7-1.3)
[2018-06-02 08:01] VITALS: BP 111/64
[2018-06-02 15:40] VITALS: BP 120/95
[2018-06-02 19:30] VITALS: BP 125/66
[2018-06-03 04:15] VITALS: BP 125/78
[2018-06-03 08:24] VITALS: BP 124/74
[2018-06-03 11:51] VITALS: BP 119/58
[2018-06-03 16:29] VITALS: BP 124/74
[2018-06-03 19:18] VITALS: BP 115/70
[2018-06-04 03:28] VITALS: BP 123/69
[2018-06-04 08:21] VITALS: BP 153/90
[2018-06-04 15:15] VITALS: BP 129/63
[2018-06-04 20:33] VITALS: BP 168/82
[2018-06-04 21:00] VITALS: BP 108/60
[2018-06-05 03:15] VITALS: BP 120/68
[2018-06-05 06:30] LABS: ALBUMIN 2.9 g/dL (3.4-5.0); CREATININE 8.4 mg/dL (0.7-1.3); PHOSPHORUS 6.8 mg/dL (2.5-4.9)
[2018-06-05 08:01] VITALS: BP 116/62
[2018-06-05 08:10] VITALS: BP 145/76
[2018-06-05 12:35] VITALS: BP 117/54
[2018-06-05 13:18] VITALS: BP 117/54
== END 2018-06-05 13:39 | disposition home or self-care (01) | DRG 193 ==
LOC: ER 10:24 → EROBS 12:36 → 3W 12:36 → ENTRNSPT 06-05 13:30 → EDTRNSPTSTS 06-05 13:32 → 3W 06-05 13:39
PROVIDERS: Hospitalist; Internal Medicine Geriatric Medicine; Internal Medicine Nephrology; Student in an Organized Health Care Education/Training Program
PROC: 5A1D70Z Performance of Urinary Filtration, Intermittent, Less than 6 Hours Per Day (ICD-10-PCS; principal; 2018-05-31)
PROC: 5A1D70Z Performance of Urinary Filtration, Intermittent, Less than 6 Hours Per Day (ICD-10-PCS; 2018-06-01)
PROC: 5A1D70Z Performance of Urinary Filtration, Intermittent, Less than 6 Hours Per Day (ICD-10-PCS; 2018-06-02)
PROC: 5A1D70Z Performance of Urinary Filtration, Intermittent, Less than 6 Hours Per Day (ICD-10-PCS; 2018-06-05)
DX: J18.9 Pneumonia, unspecified organism (principal); N18.6 End stage renal disease; I13.2 Hypertensive heart and chronic kidney disease with heart failure and with stage 5 chronic kidney disease, or end stage renal disease; E44.1 Mild protein-calorie malnutrition; E11.42 Type 2 diabetes mellitus with diabetic polyneuropathy; E11.319 Type 2 diabetes mellitus with unspecified diabetic retinopathy without macular edema; E87.6 Hypokalemia; I50.9 Heart failure, unspecified; I25.5 Ischemic cardiomyopathy; J30.9 Allergic rhinitis, unspecified; I25.10 Atherosclerotic heart disease of native coronary artery without angina pectoris; E78.5 Hyperlipidemia, unspecified; M19.90 Unspecified osteoarthritis, unspecified site; E11.22 Type 2 diabetes mellitus with diabetic chronic kidney disease; D63.8 Anemia in other chronic diseases classified elsewhere; Z68.31 Body mass index [BMI] 31.0-31.9, adult; Z90.79 Acquired absence of other genital organ(s); Z87.81 Personal history of (healed) traumatic fracture; Z95.5 Presence of coronary angioplasty implant and graft; Z89.411 Acquired absence of right great toe; Z98.42 Cataract extraction status, left eye; Z99.2 Dependence on renal dialysis; Z98.41 Cataract extraction status, right eye; I25.2 Old myocardial infarction; Z99.3 Dependence on wheelchair; Z79.02 Long term (current) use of antithrombotics/antiplatelets; Z79.4 Long term (current) use of insulin; Z79.899 Other long term (current) drug therapy; Z91.041 Radiographic dye allergy status; Z91.048 Other nonmedicinal substance allergy status
CPT/HCPCS: 10879; 32100

== ENCOUNTER 2018-08-07 22:37 | Inpatient (IN) | payer OTHER, BC ==
[~2018-08-07] VITALS: Ht 190.5 cm; Wt 112.5 kg
[~2018-08-07 22:37] MED LIST changes: -DEX4 GLUCOSE1 EACH PO; +DEX4 GLUCOSE4 GM PO; -IMDUR 60 MG TAB60 M1 PO; +KEFLEX250 M1 PO; -NEPROVITE PO; +TYLENOL EXTRA500 MG PO
[2018-08-07 22:47] VITALS: BP 132/79
[2018-08-08 00:05] LABS: ABSOLUTE NEUTROPHILS 5.5 thou/uL (1.4-8.2); BASOPHILS 0.2 % (0.0-2.0); EOSINOPHILS 0.2 % (0.0-3.0); HEMATOCRIT 33.4 % (42.0-52.0); LYMPHOCYTES 10.2 % (24.0-44.0); MCH 31.5 pg (26.0-34.0); MCV 95.5 fL (80.0-100.0); MONOCYTES 5.6 % (1.0-8.0); PLATELET COUNT 127 thou/uL (150-400); POLYS 83.8 % (36.0-66.0); RBC 3.49 mil/uL (4.50-6.00); WBC 6.5 thou/uL (4.0-11.0)
[2018-08-08 00:14] LABS: POTASSIUM 5.4 mmol/L (3.5-5.1)
[2018-08-08 00:22] LABS: ALBUMIN 3.1 g/dL (3.4-5.0); TOTAL BILIRUBIN 0.3 mg/dL (<0.1-1.0); TOTAL PROTEIN 6.9 g/dL (6.4-8.2); TROPONIN-I 0.12 ng/mL (<0.06)
[2018-08-08 03:30] VITALS: BP 157/76
[2018-08-08 04:05] VITALS: BP 157/76
--- NOTE | 2018-08-08 04:47 | NUR ---
Admission history and assessments completed. Patient states he does not know why he is here. Very [place], Hearing better on right. Care plan initiated.
[2018-08-08 07:45] VITALS: BP 147/89
[2018-08-08] MEDS ORDERED: KEFLEX250 MG PO (08:17)
[2018-08-08] MEDS ORDERED: FOLIC ACID1 MG PO (08:37)
[2018-08-08] MEDS ORDERED: VITAMINC500 PO (08:39)
--- NOTE | 2018-08-08 10:36 | NUR ---
care of pt assumed this am @ 0700. pt's son at bs and states that the pt received dialysis yesterday in [place] w/ [facility]. consult to dr. tri vigil. pt oriented to self and time, but not to place and situation. pt w/ maex4. up to bsc w/ x1 sba. pt w/ a intermittent moaning rt his chronic lower back pain/discomfort. pt restless in bed and concerned about his bp, vs taken again and pt informed of. o2 @ 2lt nc placed on pt for comfort. pt pulled out his iv access this am. dr. mauricio gave vo to not restart an iv access on pt. wound care team consulted and at bs late this am. pt w/ a poor appetite for breakfast this am. pt and son anticipate dialysis tomorrow as pt is a M-W- dialysis pt.
--- NOTE | 2018-08-08 12:27 | H ---
[facility] [place] [address] [place] [address] HISTORY AND PHYSICAL Name: TINO ROMERO Room #: 352-P ADM IN M.R.#: [id number] Admission: 08/08/18 Attend Phys: Ivania Goodwin MD Discharge: Date of : 29 Report #: [id number] THIS REPORT FOR: //name// CC: Charles Goodwin DATE OF SERVICE: 08/08/2018 CHIEF COMPLAINT: Altered mental status. HISTORY OF PRESENT ILLNESS: The patient is an 88-year-old gentleman with end-stage renal disease, came in the Emergency Room with onset of confusion post-dialysis. Yesterday, he had his normal treatment, but after dialysis was completed, his son noticed that he was more confused and restless than normal. He was inconsolable and really could not pinpoint any specific issue. He has had a chronic cough for quite some time. He has had several admissions here in the last 6 months related to cough and shortness of breath. Initially, he is empirically treated for pneumonia; however, these issues are more related to fluid overload and pulmonary infiltrates due to fluid rather than full blown infection. PAST MEDICAL HISTORY: End-stage renal disease, diabetes type 2, peripheral neuropathy, coronary artery disease with prior history of stent in 2004. Cardiomyopathy, EF 30-35%. Parotid tumor resection in 2007, anemia of chronic disease. He has had some amputation of toes on the right foot due to osteomyelitis. History of DE, diffuse osteoarthritis. As mentioned, he has had multiple admissions for pulmonary edema. PAST SURGICAL HISTORY: As above. FAMILY HISTORY: Noncontributory. SOCIAL HISTORY: Lives with his son at home. No chronic alcohol or tobacco use. ALLERGIES: BETADINE. MEDICATIONS: Renvela, Plavix, Colace, Humalog, Imdur, Lantus, Nephro-Danie, calcium acetate, Zocor, Xanax, fish oil, Toprol, tramadol. REVIEW OF SYSTEMS: He complains of a dry cough. Otherwise, no headache, chest pain, shortness of breath, abdominal pain, nausea, vomiting, diarrhea, constipation, dysuria, syncope. OBJECTIVE: VITAL SIGNS: Temperature 36.6, pulse 89, respirations 17, blood pressure 147/89, O2 sat 99% on [address] [address] HISTORY AND PHYSICAL Name: TINO ROMERO Room #: [address] [place] [address] IN M.R.#: [id number] Admission: 08/08/18 Attend Phys: Ivania Goodwin MD Discharge: Date of : 29 Report #: [id number] GENERAL: He is resting in bed in no distress. LUNGS: Clear anteriorly, diminished breath sounds in the base. HEART: Regular. ABDOMEN: Obese, soft, normoactive bowel sounds. EXTREMITIES: No edema. NEUROLOGIC: Motor strength 4/5 throughout. ASSESSMENT: 1. Altered mental status. 2. End-stage renal disease. 3. Anemia of chronic disease. 4. Diabetes type 2. PLAN: Symptom treatment for now. I believe his cardiac numbers are elevated due to his renal function and so no plans for cardiac investigations at this point unless things change. Home medicines to continue. I will ask the Renal Service to assess for dialysis routinely tomorrow. At this point, we will monitor him overnight and if no clinical changes, plan early discharge home. <ELECTRONICALLY SIGNED> By: Johnie Moya MD 08/08/18 1227 1016 1130 Johnie Moya MD /nt
--- NOTE | 2018-08-08 13:57 | EKG ---
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 : 1930 Requested By: Nima Sharif Order Number: [id number] MD: Luis Alberto Dick Measurements Intervals [place] Rate: 84 P: -13 VA: 271 QRS: -51 QRSD: 136 T: 122 QT: 412 QTc: 488 Interpretive Statements Sinus rhythm Ventricular bigeminy Prolonged VA interval Left bundle branch block Baseline wander in lead(s) V1 Compared to ECG 05/30/2018 10:34:15 First degree AV block now present Electronically Signed On 08-08-2018 13:57:05 FEATHER BALER by Luis Alberto Dick [email or web address] <ELECTRONICALLY SIGNED> By: Luis Alberto Dick MD 08/08/18 1357 00 00 Luis Alberto Dick MD /EPI
--- NOTE | 2018-08-08 14:26 | NUR ---
WOUND CONSULT: PT. WAS SEEN TODAY BY DR. VERNON AND MYSELF. PT. HAS A ULCER TO HIS LEFT GREAT TOE. NO SIGNS OR SYMPTOMS OF INFECTION NOTED AT THIS TIME. RECOMMENDATIONS: WOUND CARE TO LEFT GREAT TOE: GENTLY CLEANSE WITH WOUND CLEANSER OR NORMAL SALINE, APPLY XEROFORM TO WOUND BED,COVER WITH OPTIFOAM BORDER, COMPLETE CARES DAILY AND PRN SOILAGE. PT. AND STAFF NURSE WERE INSTRUCTED ON PLAN OF CARE.
[2018-08-08 15:58] VITALS: BP 140/83
--- NOTE | 2018-08-08 16:43 | NUR ---
INITIAL ASSESSMENT: Received consult. SW reviewed chart and spoke with nursing. Pt was admitted from home following altered mental status. Pt with hx of ESRD and goes to outpatient dialysis. Discharge home is anticipated for tomorrow after dialysis. SW met with pt and son at bedside. Introduced role of SW. Pt was resting during time of SW visit. Pt's son states that pt lives at home alone. Prior to admission, pt was using a wheelchair. Pt's son lives next door to pt and is over at pt's house during the day and throughout the night. Pt goes to [facility] in [place] on MWF at 0930. Pt's son provides transportation to/from dialysis. Pt has used HH in the past. Pt's PCP is Dr. Chris Campbell. Pt's son states he will be able to provide transportation home tomorrow or when pt is medically stable. Clinical info and discharge orders/summary will need to be faxed to [facility] when available. SW is following to assist as needed with discharge planning.
[2018-08-08 19:10] VITALS: BP 142/73
--- NOTE | 2018-08-09 01:20 | NUR ---
PATIENT CARE TRANSFERRED TO GARRICK DUARTE AT 0100. DETAILED REPORT GIVEN.
[2018-08-09 04:55] VITALS: BP 124/94
--- NOTE | 2018-08-09 05:32 | NUR ---
ASSUMED CARE @ 0115 08/09/18, REPORT FROM KRYSTEN MCCAULEY. PT STILL VERY CONFUSED AND MENTATION ALTERED, THIS IS CONSISTENT FROM THE REPORT I GOT, SON AT BEDSIDE FOR COMFORT. PT ONLY ALERT TO SELF. PT ON ROOM AIR, PT SHOWS NO SIGNS OF SOA. PLAN TODAY- POSSIBLE DIALYSIS THIS AM. PT HAD AN UNEVENTFUL NIGHT.
--- NOTE | 2018-08-09 07:39 | HC ---
[facility] [place] [place] [address] CONSULTATION Name: TINO ROMERO Room #: 352-P [facility] IN M.R.#: [id number] Admission: 08/08/18 Attend Phys: Ivania Goodwin MD Discharge: Date of : 29 Report #: [id number] THIS REPORT FOR: //name// CC: Charles Goodwin DATE OF SERVICE: 08/08/2018 CHIEF COMPLAINT: Ulceration of the left great toe. HISTORY OF PRESENT ILLNESS: This is an 88-year-old male patient who is admitted to the hospital with altered mental status. He has a history of end-stage renal disease, requiring dialysis. He has had an ulceration of his left great toe, which is why I have been asked to see him. He is a little bit confused, but denies pain at this time. PAST MEDICAL HISTORY: Positive for type 2 diabetes mellitus, end-stage renal disease, peripheral neuropathy, coronary artery disease, cardiomyopathy, parotid tumor resection in 2007, anemia of chronic disease and history of pulmonary edema. FAMILY HISTORY: Noncontributory. SOCIAL HISTORY: The patient lives with his son at home. No history of alcohol or tobacco use. ALLERGIES: BETADINE. MEDICATIONS: Include Renvela, Plavix, Colace, Humalog, Imdur, Lantus, Nephro-Danie, calcium acetate, Zocor, Xanax, fish oil, Toprol, tramadol. REVIEW OF SYSTEMS: Somewhat limited due to the patient complaining of nausea, vomiting and his inability to fully answer questions. He denies pain in his left great toe, but is aware of the ulceration. He does not know for how long it has been present. He does complain of nausea, vomiting and some restlessness. Denies chest pain or shortness of breath. Other systems in a 14-point review of systems are unobtainable. PHYSICAL EXAMINATION: VITAL SIGNS: At this time include pulse rate 89, respiratory rate 17, blood pressure 140/83, temperature 99.3. GENERAL: This is a chronically ill-appearing male patient who appears to be in minimal distress. HEENT: Head normocephalic. Nose and throat clear. NECK: Supple. LUNGS: Diminished. [facility] [address] [place] [address] CONSULTATION Name: TINO ROMERO Room #: 352-P ADM IN M.R.#: [id number] Admission: 08/08/18 Attend Phys: Ivania Goodwin MD Discharge: Date of : 29 Report #: [id number] HEART: Seems intermittently irregular. ABDOMEN: Obese, soft, nontender. EXTREMITIES: Demonstrate weakly palpable pulses with good capillary refill. There is a circular ulcer on the plantar aspect of the left great toe. He has hypertrophic nails on both feet. NEUROLOGICAL: The patient has diminished light touch sensation in both lower extremities and has symmetrical neurological exam. LABORATORY DATA: Sodium 135, potassium 5.4, chloride 95, CO2 of 36, BUN 39, creatinine 4.0, glucose 110, total protein 6.9, albumin is 3.1. Troponin I is elevated at 0.12. The patient's proBNP is greater than 35,000. White blood cell count is 6.5 with a hemoglobin of 11.0, hematocrit 33.4. CLINICAL IMPRESSION: 1. Diabetic ulceration to the left great toe. 2. Diabetes type 2. 3. End-stage renal disease, requiring dialysis. 4. Cardiomyopathy and history of pulmonary edema. RECOMMENDATIONS: At this point in time, we will check arterial Dopplers to make sure he has adequate vascularity for wound healing. We will recommend Xeroform gauze and foam based dressing to the left great toe ulceration. We will ask Podiatry to see him for nail care. We will recommend that he continue his current medications and that nutrition sees him to maximize his nutrition for wound healing and glycemic control. I appreciate being asked to see him in consultation. <ELECTRONICALLY SIGNED> By: Sean Donato MD 08/09/18 0739 1738 2210 Sean Donato MD /nt
--- NOTE | 2018-08-09 10:18 | NUR ---
IMELDA reviewed chart. Pt is currently having dialysis. Plan is for pt to d/c home after dialysis. Awaiting final discharge orders/summary. blanking press operator to fax clinical inof and discharge orders/summary to [facility] in [place] ( ). IMELDA is following to assist as needed with discharge planning.
--- NOTE | 2018-08-09 10:27 | NUR ---
[facility] SENT CLINICALS, H&P, MED, UPDATES TO [facility], PHONE [phone], FAX [phone]. DP WILL SEND DIALYSIS PAPERS AND DC PAPERWORK, ONCE COMPLETED. PATIENT EXPECTED TO DISCHARGE TODAY.
[2018-08-09 11:54] VITALS: BP 128/76
[2018-08-09] MEDS ORDERED: BENZONATATE100 MG PO (13:14)
[2018-08-09] MEDS ORDERED: ONDANSETRON HCL4 M2 PO (13:14)
[2018-08-09 13:35] VITALS: BP 128/76
[2018-08-09 13:57] VITALS: BP 128/76
--- NOTE | 2018-08-09 14:27 | NUR ---
PATIENT WLL DISCHARGED AT THIS TIME. HE DOES NOT SEEM TO BE IN PAIN AT THIS TIME. COMPLETED DIALYSIS THIS AM. RESPIRATIONS NON LABORED. SON ACCOMPANIED PAT HOME.
--- NOTE | 2018-08-09 14:47 | NUR ---
WOUND FOLLOW UP: PT. WAS SEEN TODAY BY DR. VERNON AND MYSELF. PT. WOUND IS CLINICALLY BETTER TODAY. RECOMMENDATIONS: CONTINUE WITH CURRENT PLAN OF CARE. PT. AND STAFF NURSE WERE INSTRUCTED ON PLAN OF CARE.
[2018-08-09 23:10] LABS: HEP B SURFACE Ab(ANTI-HBS Non Reactive (()); HEPATITIS B SURFACE AG Negative (Negative)
--- NOTE | 2018-08-10 10:04 | D ---
[facility] [place] [address] DISCHARGE SUMMARY Name: TINO ROMERO Room #: 352-P [facility] IN M.R.#: [id number] Admission: 08/08/18 Attend Phys: Ivania Goodwin MD Discharge: 08/09/18 Date of : 29 Report #: [id number] THIS REPORT FOR: //name// CC: Charles Goodwin FINAL DIAGNOSES: 1. Altered mental status. 2. Metabolic encephalopathy. 3. Diabetes type 2. 4. End-stage renal disease. 5. Coronary artery disease. 6. Atherosclerosis. HOSPITAL COURSE: The patient is admitted with confusion. Basic studies including CT head were fairly unremarkable. Renal service followed him and managed one session of dialysis. Wound care service assessed wound on the left first toe. Doppler study was obtained without extent of disease in the left and therefore no plans for invasive procedure for the left leg were indicated. Topical treatment only. There is no clear etiology for his confusion, felt this was just a combination of his advanced age and medical complications. PHYSICAL EXAMINATION: GENERAL: On the day of discharge, he was resting in bed. VITAL SIGNS: Stable. LUNGS: Clear. HEART: Regular. ABDOMEN: Soft, normoactive bowel sounds. EXTREMITIES: Showed no edema. DISPOSITION: He is discharged home with diet and activity as tolerated, resume all medications and outpatient hemodialysis. Currently, his son has declined offers for home health. I have added Tessalon p.r.n. for cough and Zofran p.r.n. for nausea to his medication regimen. <ELECTRONICALLY SIGNED> By: Johnie Moya MD 08/10/18 1004 1318 1345 Johnie Moya MD /nt
--- NOTE | 2018-08-11 09:00 | HC ---
[facility] [place] [address] CONSULTATION Name: TINO ROMERO Room #: 352-P [facility] IN M.R.#: [id number] Admission: 08/08/18 Attend Phys: Ivania Goodwin MD Discharge: 08/09/18 Date of : 28 Report #: [id number] THIS REPORT FOR: //name// CC: Charles Goodwin DATE OF SERVICE: 08/09/2018 REASON FOR CONSULTATION: End-stage renal disease. REASON FOR THE PRESENTATION: Lethargy, mental status changes, post dialysis. HISTORY OF PRESENT ILLNESS: A well-known patient to me, 88-year-old who is maintained on dialysis every Tuesday, Tuesday and Tuesday. He is followed by another [facility]. He presented after the dialysis with what was described as cough, shortness of breath, altered mental status. He had a similar presentation a few months ago when I took care of him back in 05/2018. I am being consulted to manage his end-stage renal disease. PAST MEDICAL HISTORY: 1. Diabetes mellitus. 2. End-stage renal disease. 3. Cardiomyopathy. 4. Hyperlipidemia. 5. 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 6. Diabetic neuropathy, retinopathy. 7. Ankle fracture. 8. Parotid tumor removal. 9. Anemia. MEDICATIONS: 1. Lantus. 2. Metoprolol. 3. Plavix. 4. Tramadol. ALLERGIES: POVIDONE IODINE. REVIEW OF SYSTEMS: Unobtainable given the patient's current mental status. FAMILY HISTORY: Unobtainable. SOCIAL HISTORY: Unobtainable given the patient's mental status. PHYSICAL EXAMINATION: GENERAL: Alert, but disoriented. [facility] [address] [place] [address] CONSULTATION Name: TINO ROMERO Room #: 352-P [facility] IN M.R.#: [id number] Admission: 08/08/18 Attend Phys: Ivania Goodwin MD Discharge: 08/09/18 Date of : 29 Report #: [id number] VITAL SIGNS: Blood pressure 124/94. HEAD AND NECK: No jugular venous distention. Right IJ tunneled catheter. CHEST: Bilateral crackles. CARDIOVASCULAR: No rub. ABDOMEN: Soft, nontender. LOWER EXTREMITIES: +1 edema. LABORATORY DATA: Hemoglobin 11, sodium 135, potassium 5.4. ASSESSMENT, IMPRESSION AND PLAN: 1. End-stage renal disease. 2. Altered mental status. 3. We will arrange for the patient to have his usual hemodialysis. Mental status workup had been initiated. 4. Resume his outpatient medications. We will continue to follow along. <ELECTRONICALLY SIGNED> By: Sonja Red MD 08/11/18 0900 0835 1018 Sonja Red MD /nt
== END 2018-08-09 14:17 | disposition home or self-care (01) | DRG 70 ==
LOC: ER 22:37 → EROBS 08-08 03:17 → 3W 08-08 03:17 → ENTRNSPT 08-09 14:06 → EDTRNSPTSTS 08-09 14:09 → 3W 08-09 14:17
PROVIDERS: Emergency Medicine; Hospitalist; ADMIT Internal Medicine
DX: G93.41 Metabolic encephalopathy (principal); N18.6 End stage renal disease; E44.1 Mild protein-calorie malnutrition; I42.9 Cardiomyopathy, unspecified; L60.2 Onychogryphosis; E11.319 Type 2 diabetes mellitus with unspecified diabetic retinopathy without macular edema; E11.36 Type 2 diabetes mellitus with diabetic cataract; I25.10 Atherosclerotic heart disease of native coronary artery without angina pectoris; E78.5 Hyperlipidemia, unspecified; E11.42 Type 2 diabetes mellitus with diabetic polyneuropathy; D63.8 Anemia in other chronic diseases classified elsewhere; L97.529 Non-pressure chronic ulcer of other part of left foot with unspecified severity; G89.29 Other chronic pain; M54.9 Dorsalgia, unspecified; M19.90 Unspecified osteoarthritis, unspecified site; Z68.31 Body mass index [BMI] 31.0-31.9, adult; R41.82 Altered mental status, unspecified; E11.621 Type 2 diabetes mellitus with foot ulcer; E11.22 Type 2 diabetes mellitus with diabetic chronic kidney disease; Z79.4 Long term (current) use of insulin; Z79.899 Other long term (current) drug therapy; Z79.1 Long term (current) use of non-steroidal anti-inflammatories (NSAID); Z88.8 Allergy status to other drugs, medicaments and biological substances; Z91.041 Radiographic dye allergy status; I25.2 Old myocardial infarction; Z89.431 Acquired absence of right foot; Z95.5 Presence of coronary angioplasty implant and graft
CPT/HCPCS: 10080; 32100

== ENCOUNTER 2018-10-11 22:38 | Inpatient (IN) | payer OTHER, BC ==
[~2018-10-11] VITALS: Ht 193 cm; Wt 108.9 kg
[~2018-10-11 22:38] MED LIST changes: +BENZONATATE100 MG PO; +ONDANSETRON HCL4 M2 PO
[2018-10-11 22:51] VITALS: BP 134/82
[2018-10-11 23:27] LABS: BE(vivo) 8.5 mmol/L (-2 to +3); HCO3 32.9 mmol/L (22.0-26.0); PCO2 44.3 mmHg (35.0-45.0); PO2 25.8 mmHg (80.0-100.0); pH 7.488 (7.360-7.450)
[2018-10-11 23:30] LABS: ABSOLUTE NEUTROPHILS 3.6 thou/uL (1.4-8.2); BASOPHILS 0.5 % (0.0-2.0); HEMATOCRIT 37.1 % (42.0-52.0); MCH 31.2 pg (26.0-34.0); MCHC 32.4 g/dL (28.0-37.0); MCV 96.2 fL (80.0-100.0); MONOCYTES 6.4 % (1.0-8.0); PLATELET COUNT 108 thou/uL (150-400); POLYS 70.1 % (36.0-66.0); RBC 3.85 mil/uL (4.50-6.00); RDW 18.5 % (10.5-14.5); WBC 5.1 thou/uL (4.0-11.0)
[2018-10-11 23:38] LABS: CALCIUM 9.3 mg/dL (8.5-10.1); CREATININE 3.2 mg/dL (0.7-1.3); POTASSIUM 4.7 mmol/L (3.5-5.1)
[2018-10-11 23:46] LABS: TROPONIN-I 0.11 ng/mL (<0.06)
[2018-10-11 23:48] LABS: DIRECT BILIRUBIN 0.3 mg/dL (<0.1-0.3); TOTAL BILIRUBIN 0.8 mg/dL (<0.1-1.0); TOTAL PROTEIN 7.2 g/dL (6.4-8.2)
[2018-10-12] VITALS (8 sets, daily range): BP systolic 114–160; BP diastolic 52–90
[2018-10-12 00:18] LABS: URINE BILIRUBIN NEGATIVE (Negative); URINE BLOOD 1+ (Negative); URINE CLARITY CLEAR; URINE COLOR YELLOW; URINE GLUCOSE-RANDOM* NEGATIVE (Negative); URINE KETONES NEGATIVE (Negative); URINE LEUKOCYTES-REFLEX TRACE (Negative); URINE NITRITE-REFLEX NEGATIVE (Negative); URINE PROTEIN (DIPSTICK) 3+ (Negative); URINE SPECIFIC GRAVITY 1.015 (1.005-1.035); URINE UROBILINOGEN 0.2 E.U./dl (0.2-1.0)
[2018-10-12 00:26] LABS: AMP/METHAMP Negative (Negative); BARBITURATES Negative (Negative); BENZODIAZEPINES Negative (Negative); COCAINE Negative (Negative); METHADONE Negative (Negative); OPIATES Negative (Negative); PCP Negative (Negative)
[2018-10-12 00:39] LABS: SQUAMOUS 0-3 Few /LPF (0-3)
[2018-10-12 00:40] LABS: BACTERIA-REFLEX 1-9 Few /HPF (None Seen); CASTS None Seen /LPF (None Seen); CRYSTALS None Seen /LPF (None Seen); MUCUS 0-3 Light strn/LPF (None Seen); URINE RBC 3-10 Few /HPF (0-2); WBC CLUMPS Few (None Seen)
[2018-10-12 03:17] LABS: BE(vivo) 7.3 mmol/L (-2 to +3); HCO3 30.1 mmol/L (22.0-26.0); PCO2 36.3 mmHg (35.0-45.0); PO2 60.8 mmHg (80.0-100.0); pH 7.537 (7.360-7.450); sO2 93.9 % (92.0-98.0)
[2018-10-12 04:57] LABS: SALICYLATE 3.6 mg/dL (2.8-20.0)
--- NOTE | 2018-10-12 08:07 | NUR ---
SPOKE WITH DR DONALD. T/O: 1MG HALADOL IV PUSH ONE TIME
[2018-10-12] MEDS ORDERED: KEFLEX250 MG PO (13:39)
[2018-10-12] MEDS ORDERED: TRAZODONE HCL50 MG PO (13:39)
[2018-10-12] MEDS ORDERED: VITAMINC500 PO (13:40)
[2018-10-12] MEDS ORDERED: SODIUM BICARBO650 M3 PO (13:40)
[2018-10-12] MEDS ORDERED: FISH OIL 1,001000 M2 PO (13:41)
[2018-10-12] MEDS ORDERED: ZOCOR20 MG PO (13:45)
--- NOTE | 2018-10-12 17:30 | NUR ---
88 YO MALE ADMITTED TO 421 BY CART FROM ER. IV INTACT IN R AC WRAPPED WITH COBAN. POOR HISTORIAN UNABLE TO ANSWERE ANY QUESTIONS IS SLEEPING THOUGH ALSO VERY RESTLESS IN THE BED. BLANKETS PLACED ON SIDE RAILS FOR PROTECTION, CALL LIGHT W/I REACH.
--- NOTE | 2018-10-12 17:58 | EKG ---
[place] [address] [facility] [place] [address] ELECTROCARDIOGRAM REPORT Name: TINO ROMERO Room #: 421-P ADM IN M.R.#: [id number] ������������������ Admission: 10/12/18 ������������������ Attend Phys: Johnie Moya MD Discharge: ������������������ Date of : 29 Report #: [id number] ����������������������������������������������������������������� [id number] THIS REPORT FOR: //name// [facility] ED Test Date: 2018-10-11 Test Time: 23:35:32 Pat Name: TINO ROMERO Department: Room: 421 Gender: M Die Try Out Worker: elizabeth : 1930 Requested By: Nima Hebert Order Number: [id number] MD: Tuan Muñoz Measurements Intervals [place] Rate: 85 P: 0 NH: 55 QRS: -67 QRSD: 136 T: 122 QT: 420 QTc: 500 Interpretive Statements Sinus rhythm Ventricular premature complex Left bundle branch block Baseline wander in lead(s) I,aVR,aVL,V4 Compared to ECG 08/07/2018 23:01:53 No obvious differences Electronically Signed On 10-12-2018 17:57:51 CDT by Tuan Muñoz [email or web address] ��������������������������������������������� <ELECTRONICALLY SIGNED> ���������������������������������������� By: Tuan Muñoz MD, [facility] ��������������������������������������������� 10/12/18 [id number] 2335 Tuan Muñoz MD, [facility] /EPI
--- NOTE | 2018-10-12 17:58 | EKG ---
[place] [address] [facility] [place] [address] ELECTROCARDIOGRAM REPORT Name: TINO ROMERO Room #: 421-P ADM IN M.R.#: [id number] ������������������ Admission: 10/12/18 ������������������ Attend Phys: Johnie Moya MD Discharge: ������������������ Date of : 29 Report #: [id number] ����������������������������������������������������������������� [id number] THIS REPORT FOR: //name// [facility] ED Test Date: 2018-10-12 Test Time: 00:15:39 Pat Name: TINO ROMERO Department: Room: 421 Gender: M Station Supervisor: ... : 1930 Requested By: Johnie Moya Order Number: [id number] MD: Tuan Muñoz Measurements Intervals [place] Rate: 90 P: -74 LA: 241 QRS: -56 QRSD: 134 T: 118 QT: 395 QTc: 484 Interpretive Statements Sinus or ectopic atrial rhythm Prolonged LA interval Left bundle branch block Compared to ECG 08/07/2018 23:01:53 Ventricular premature complex(es) no longer present Electronically Signed On 10-12-2018 17:58:26 CDT by Tuan Muñoz [email or web address] ��������������������������������������������� <ELECTRONICALLY SIGNED> ���������������������������������������� By: Tuan Muñoz MD, [facility] ��������������������������������������������� 10/12/18 1758 0015 0015 Tuan Muñoz MD, [facility] /EPI
--- NOTE | 2018-10-12 18:32 | NUR ---
RECEIVED IN REPORT IN ED THAT PT'S URINE WAS BLOOD TINGED. REMAINS SAME COLOR, 200ML EMPTIED FROM SHAIKH.
--- NOTE | 2018-10-13 03:03 | NUR ---
Assumed care of pt at 1900. Pt lethargic and unable to form words. developmental education instructor advises to hold pain meds due to pt being lethargic. Pt unable to take po meds. Bed life enrichment assistant ordered for pt comfort. Pt has dialysis MWF. Family states that recently after dialysis pt has been feeling sicker. Fall precautions in place. Will continue to monitor.
[2018-10-13 04:23] LABS: ALBUMIN 2.8 g/dL (3.4-5.0); CALCIUM 9.5 mg/dL (8.5-10.1); TOTAL BILIRUBIN 0.6 mg/dL (<0.1-1.0); TOTAL PROTEIN 6.8 g/dL (6.4-8.2)
[2018-10-13 04:35] VITALS: BP 144/81
[2018-10-13 04:40] LABS: HEMATOCRIT 36.9 % (42.0-52.0); HEMOGLOBIN 12.3 gm/dL (14.0-18.0); MCH 31.7 pg (26.0-34.0); MCHC 33.3 g/dL (28.0-37.0); MCV 94.9 fL (80.0-100.0); RBC 3.88 mil/uL (4.50-6.00); WBC 8.1 thou/uL (4.0-11.0)
[2018-10-13 04:43] LABS: POTASSIUM 5.7 mmol/L (3.5-5.1)
[2018-10-13 07:30] VITALS: BP 162/70
--- NOTE | 2018-10-13 09:46 | H ---
[facility] [place] [address] [place] [address] HISTORY AND PHYSICAL Name: TINO ROMERO Room #: 421-P [facility] IN M.R.#: [id number] Admission: 10/12/18 ������������������ Attend Phys: Johnie Moya MD Discharge: ������������������ Date of : 29 Report #: [id number] THIS REPORT FOR: //name// CC: Charles Moya DATE OF SERVICE: 10/12/2018 CHIEF COMPLAINT: Confusion and weakness. HISTORY OF PRESENT ILLNESS: The patient is an 88-year-old gentleman who was brought to the Emergency Room by his family with acute mental status change. He was in his usual state of health while receiving hemodialysis yesterday when he became suddenly confused, disoriented and agitated. He apparently received Benadryl during his dialysis session and according to the notes and his family, it seemed to cause worsening of his mentation. Post-dialysis, he was too weak to stand or walk, which was not normal for him and he was more agitated, more restless and inconsolable and very confused and was brought to the Emergency Room. So far, overnight, he has remained disoriented, trying to climb out of bed, inconsolable, thrashing around in bed, really uncommunicative and lethargic. He has received IV Ativan and IV Haldol to try to calm his situation. PAST MEDICAL HISTORY: End-stage renal disease, on hemodialysis; diabetes type 2 with peripheral neuropathy; retinopathy; coronary artery disease with prior history of stent in 2004; cardiomyopathy, EF 30%; hypertension; parotid tumor 2007; anemia of chronic disease; osteoarthritis. He has had a partial right foot amputation, diabetic nephropathy, history of CT, chronic low back pain. PAST SURGICAL HISTORY: He also had a TURP. FAMILY HISTORY: Noncontributory. SOCIAL HISTORY: He lives with his son. Prior smoking none. Currently no chronic alcohol use. ALLERGIES: METHYLPREDNISOLONE, BETADINE. MEDICATIONS: Plavix, Imdur, metoprolol, tramadol, Tylenol, Xanax, calcium acetate, Colace, Zofran, Lantus, Humalog, folic acid, Nephrocaps, Tessalon as needed. REVIEW OF SYSTEMS: He is unable to give review. OBJECTIVE: VITAL SIGNS: Temperature 36.4, pulse 93, respiration 14, blood pressure 160/90, [facility] [address] [place] [address] HISTORY AND PHYSICAL Name: TINO ROMERO Room #: 421-[facility] IN M.R.#: [id number] Admission: 10/12/18 ������������������ Attend Phys: Johnie Moya MD Discharge: ������������������ Date of : 29 Report #: [id number] O2 sat 91% on room air. GENERAL: He is an elderly man who is lethargic, rolling around in bed, but cannot open his eyes or communicate. HEENT AND NECK: Shows poor dentition, but otherwise atraumatic. LUNGS: Clear anteriorly. HEART: Regular, no murmur. ABDOMEN: Soft, normoactive bowel sounds. EXTREMITIES: No cyanosis, clubbing or edema. He is moving all extremities. NEUROLOGIC: As mentioned, I cannot get him to follow any type of neuro exam. LABORATORY REVIEW: Lactic acid 2.2, troponin 0.35, pO2 was 60 on room air. Urinalysis, blood, protein, red cells, white cells, bacteria, mucus. Urine drug screen negative. Glucose 64. White count 5, hemoglobin 12. Electrolytes are okay. Creatinine 3.2, albumin 3. Radiology reviewed CT with no acute process. Chest x-rays suggested mild CHF and CT of the cervical spine showed degenerative chronic changes. ASSESSMENT: 1. Acute metabolic encephalopathy. 2. Acute cystitis. 3. Mild lactic acidosis, may be related to his renal dysfunction. 4. Elevated troponin, may be related to renal dysfunction and his underlying cardiomyopathy. 5. Coronary artery disease. 6. Cardiomyopathy with ejection fraction 30%. 7. Diabetes type 2. 8. End-stage renal disease. 9. Anemia of chronic disease. 10. Mild protein-calorie malnutrition. PLAN: Empiric antibiotics will be ordered. We will hold his diabetic regimen until he is alert and eating. Supportive measures, otherwise in place and plans for dialysis tomorrow. He has do not resuscitate orders, which have been entered and will be continued. ��������������������������������������������� <ELECTRONICALLY SIGNED> ���������������������������������������� By: Johnie Moya MD ��������������������������������������������� 10/13/18 0946 1014 1031 Johnie Moya MD /nt
--- NOTE | 2018-10-13 12:58 | NUR ---
ASSESSMENT-PT NOT ABLE TO ANSWER QUESTIONS. BALWINDER SURESH AT BEDSIDE AND LIVES NEXT DOOR TO PT. PT HAS ANOTHER SON JACK THAT LIVES 5 BLOCKS AWAY. PT HAS A DTR IN [place] THAT IS CURRENTLY HERE IN THE AREA VISITING. PER SON PT FELL 2 WEEKS AGO. PRIOR PT HAD BEEN DOING A SPONGE BATH. PT SLIPPED IN THE SHOWER AND HAS NOT BEEN BACK IN THE SHOWER SINCE THE FALL. BALWINDER SURESH DOES THE COOKING, CLEANING AND LAUNDRY. [facility]ER SURESH NORMALLY TRANSPORTS TO & FROM [facility] IN [place] ON 0930 SHIFT. PT TRANSFERS TO THE AND HAS A GAIT BELT AT HOME. FOLLOWING TO ASSIST WITH DC PLANNING.
--- NOTE | 2018-10-13 14:23 | NUR ---
ASSESMENT COMPLETED. VSS. LETHARGIC/RESTLESS. RESPONDS TO VERBAL STIMULI. SON AT BEDSIDE. REPOSITIONED. WILL CONT. TO MONITOR.
[2018-10-13 16:15] VITALS: BP 146/88
[2018-10-13 20:20] VITALS: BP 117/66
[2018-10-14 03:20] VITALS: BP 148/134
--- NOTE | 2018-10-14 08:32 | NUR ---
ASSUMED PT CARE 1899. PT NONRESPONSIVE, ONLY MOANS. PT IN DIALYSIS AT TIME OF SHIFT CHANGE. RETURNED TO ROOM APPROXIMATELY 2215. REASSESSMENT COMPLETED. DOCTOR CONTACTED FOR ELEVATED BP, ORDERS RECEIVED-SEE EMAR. REPORT GIVEN TO DAY NURSE.
--- NOTE | 2018-10-14 17:49 | NUR ---
PT TRANSFERRED FROM 3W TO 419 PER BED ALERT AND IN NO ACUTE DISTRESS. PT AND DAUGHTER ORIENTED TO UNIT. REPOSITIONED ON SIDE AND DSNG TO IT ABSCESS CHANGED. PT FEEDING SELF DINNER SOLID FOOD W/ NECTAR THICK LIQUIDS. IV FLUIDS INFUSING.
[2018-10-14 18:06] VITALS: BP 147/76
[2018-10-14 19:21] VITALS: BP 99/39
[2018-10-14 19:37] VITALS: BP 149/56
--- NOTE | 2018-10-15 02:05 | NUR ---
PT LYING IN BED. REMAINS CONFUSED AND DROWSY. NO SIGNS OF PAIN THOUGH PT UNABLE TO VERBALIZE. WILL CONTINUE TO PROVIDE FREQUENT OBSERVATION.
[2018-10-15 04:57] VITALS: BP 140/59
[2018-10-15 05:33] LABS: ALBUMIN 2.3 g/dL (3.4-5.0); CALCIUM 8.9 mg/dL (8.5-10.1); CREATININE 4.8 mg/dL (0.7-1.3); PHOSPHORUS 3.9 mg/dL (2.5-4.9); POTASSIUM 4.3 mmol/L (3.5-5.1)
[2018-10-15 08:20] VITALS: BP 148/79
--- NOTE | 2018-10-15 08:25 | NUR ---
RECEIVED PT CARE APPROX 0715. LETHARGIC ALTHOUGH MORE COHERENT THAN 10/13. PT ABLE TO ANSWER QUESTIONS(YES/NO) AND EXPRESS HIS NEEDS. PT LOUDLY SCREAMING HE IS HURTING AND HE WANTS WATER. MORPHINE GIVEN ORDERED- NOTED PT SAYING REPEATEDLY "I FEEL GOOD" AFTER 15 MINUTES OF MEDICATING. ORAL CARE DONE. WILL CONT. TO MONITOR. SON AT BEDSIDE.
[2018-10-15 19:36] VITALS: BP 101/69
--- NOTE | 2018-10-16 03:03 | NUR ---
Assumed care of pt at 1900. Oriented to self only. Yells out several times during shift. Denies pain. Q2h turn. Tends to stay on his left side. Fall precautions in place. Will continue to monitor.
[2018-10-16 04:56] VITALS: BP 129/76
--- NOTE | 2018-10-16 09:33 | NUR ---
ASSESMENT COMPLETED. VSS. MORE SLEEPY THIS AM THAN YESTERDAY. NO NOTED SOA. PT IN DIALYSIS AT THIS TIME. LESS RESTLESS THAN YESTERDAY. WILL CONT. TO MONITOR.
--- NOTE | 2018-10-16 15:10 | NUR ---
PT TALKING MORE THIS AFTERNOON. ASKING FOR FOOD- FALLS BACK TO SLEEP EASILY. WILL CONT. TO MONITOR.
[2018-10-16 15:40] VITALS: BP 112/61
[2018-10-16 18:08] LABS: HEPATITIS B SURFACE AG Negative (Negative)
[2018-10-16 19:33] VITALS: BP 129/67
--- NOTE | 2018-10-17 03:25 | NUR ---
Assumed care of pt at 1900. Pt more alert and awake than the day before. Asks where he is and how long he has been here. Still confused and yells out at times during shift. Q2h turn, but tends to turn back on his left side after being turned. Nystatin powder administered on erythema on groin. Esteban catheter in place. Fall precautions in place. Will continue to administer.
[2018-10-17 05:06] VITALS: BP 88/14
[2018-10-17 07:45] VITALS: BP 123/72
--- NOTE | 2018-10-17 11:16 | NUR ---
ASSUMED CARE AT 0700, SHIFT ASSESSMENT DONE. PLAVIX GIVEN WITH PUDDING. REMAINS DISORIENTED, ON IV FLUIDS. SPEECH EVAL TODAY. DENIES ANY PAIN. WILL CONTINUE TO ASSESS AND ASSIST WITH ADLs NEEDED.
--- NOTE | 2018-10-17 14:38 | NUR ---
Following for d/c planning needs. Reviewed chart and spoke with physician, nurse, pt and pt's son Anita at bedside. Discussed SNF options with family and they were given list of facilities in [facility] and [facility]. Family wants pt to go to facility with in-house dialysis. Asked cyber policy and strategy planner to fax referrals to [facility]. Will remain available to assist as needed.
[2018-10-17 15:48] VITALS: BP 113/71
--- NOTE | 2018-10-17 15:53 | NUR ---
FAXED REFERRAL TO [facility] AND SPOKE WITH COMFORT IN ADM. SHE RECEIVED REFERRAL AND WILL REVIEW ALSO FA[facility]ED [facility]AL TO [facility] SPOKE WITH NOA SHE WILL REVIEW LET HER KNOW THAT PT. HAS DIALYSIS AT [place], [place] ON . FAXED REFERRAL TO SPOKE WITH BRANDON IN ADM SHE RECEIVED REFERRAL AND WILL REVIEW ALSO FAXED REFERRAL TO [facility]. DCP TO FOLLOW.
[2018-10-17 20:14] VITALS: BP 138/76
--- NOTE | 2018-10-18 03:52 | NUR ---
Assumed care of pt at 1900. Pt remains confused but more alert. Likes to sit up in bed and not lay down. Repositioned multiple time but still find the patient in a sitting position with the gown off and legs roni-crossed underneath him and refuses to change positions or put the gown back on. Fall precautions in place. Will continue to monitor and assist with needs.
[2018-10-18 04:34] VITALS: BP 119/77
[2018-10-18 07:30] VITALS: BP 126/50
--- NOTE | 2018-10-18 14:20 | NUR ---
ASSUMED CARE AT 0700, SHIFT ASSESSMENT DONE, WENT TO DIALYSIS THIS AM. 1875 ML WAS TAKEN OFF. PATIENT IS MORE AWAKE TODAY. ATE SOME LUNCH. REPORTED PAIN, PRN PAIN MEDS GIVEN. SITTING IN THE BED THIS AFTERNOON. FAMILY AT BEDSIDE. WILL CONTINUE TO ASSESS AND ASSIST WITH ADLs NEEDED.
[2018-10-18 16:00] VITALS: BP 97/60
--- NOTE | 2018-10-18 17:00 | NUR ---
PATIENT HAD PULLED HIS FOELY OUT LAST NIGHT, STARTED BLEEDING FROM THE PENIS. DR DONALD AWARE OF THE SITUATION, HE INDICATED WE ARE GOING TO OBSERVE FOR NOW. PATIENT REMAINS ON IV FLUIDS. WILL CONTINUE TO ASSESS AND ASSIST WITH ADLs NEEDED.
--- NOTE | 2018-10-18 17:02 | NUR ---
[facility] is not sure they can accept the pt. Referral sent to [facility] for consideration. The pt had dialysis today. The attending spoke with the pt's son regarding plan of care. Will follow.
[2018-10-18 19:43] VITALS: BP 107/53
--- NOTE | 2018-10-19 04:23 | NUR ---
ASSESSMENT COMPLETED.NEW IV STARTED ON HIS R UPPERARM,BRUISING NOTED ON HIS LUIZA UPPER ARM.PT WAS FED APPLEASUCE,PUDDING AND SOME WATER PER HIS REQUEST.PT REFUSED TO LAY IN BED,PREFERS TO SIT UP IN BED.FALL PREACUTIONS IN PLACE.CALL LIGHT WITHIN REACH.
[2018-10-19 04:58] VITALS: BP 97/81
[2018-10-19 07:45] VITALS: BP 112/45
[2018-10-19] MEDS ORDERED: METOPROLOL SUCC25 M1 PO (09:45)
[2018-10-19] MEDS ORDERED: TRAMADOL 50 MG50 MG PO (09:46)
[2018-10-19] MEDS ORDERED: ALPRAZOLAM 0.0.25 M1 PO (09:47)
[2018-10-19] MEDS ORDERED: LIDOPATCH1 EACH TRANSDERM (09:47)
--- NOTE | 2018-10-19 10:54 | NUR ---
CASE DISCUSSED WITH DR DONALD AND PT'S CONDITION HAS IMPROVED GREATLY. WILL ASK FOR A 5N EVAL. FOLLOWING.
[2018-10-19 16:09] VITALS: BP 134/82
--- NOTE | 2018-10-19 18:23 | NUR ---
PT RESTING IN BED SON AT BEDSIDE. PT HAS BEEN NORE ALERT TODAY. SOCIAL WORKERS WORKING ON PLACEMENT. DIET CHANGED TO RENAL DIET. PT W/O PAIN AT THIS TIME.
[2018-10-19 19:24] VITALS: BP 109/79
--- NOTE | 2018-10-20 03:22 | NUR ---
ASSUMED PT CARE 1899. PT ALERT TO SELF. REASSESSMENT COMPLETE. IV DRESSING C/D/I, NO SIGNS OF INFITLRATION. R CHEST TESSEO DRESSING C/D/I. PT ON 2L OXYGEN VIA NC. FREQUENT ROUNDING. WILL CONTINUE POC UNTIL EOS.
[2018-10-20 05:50] VITALS: BP 116/67
--- NOTE | 2018-10-20 09:22 | NUR ---
Assess due to length of stay. Admitted with acute metabolic encephalopathy and CHI following fall few weeks ago. ESRD/dialysis. Wt has been stable around 240-[address] has assessed and pt with improving mental status, diet upgraded to mech altered ground, nectar liquids and has magic cups ordered. Phos and K wnl. DNR status. Discharge planning in progress. Low nutrition risk
--- NOTE | 2018-10-20 13:38 | NUR ---
S/W SON KERWIN IN THE ROOM AND HE WOULD LIKE TO SEE IF [facility] IN [place] CAN ACCEPT PT. S/W NURSERYMAN ASSISTANT [phone] AND ASKED DC CASTING TESTER TO FAX REFERRAL TO THEM [phone]. S/W JAZMIN AT [facility] AND ALERTED OF POSSIBLE TRANFER THERE SOON WELL. SHE SAYS THEY HAVE ANOTHER PT THAT COMES TO DIALYSIS THERE FROM [facility].
--- NOTE | 2018-10-20 14:12 | NUR ---
FAXED REFERRAL TO [facility] SPOKE WITH MIRIAN IN ADM. SHE WILL REVIEW REFERRAL AND WILL LET SW KNOW IF THE CAN ACCEPT.
--- NOTE | 2018-10-20 16:30 | NUR ---
SELMA NOTIFIED THAT [facility] DIDN'T HAVE ANY BEDS. SELMA SPOKE WITH PT'S SON AND AKED IF THERE WAS ANYWHERE ELSE IN [place] THAT THEY WOULD BE INTERESTED IN PT GOING TO AND HE SAID THERE WASN'T. HE ASKED IF PT COULD GO TO A FACILITY AND BE SET UP WITH DIALYSIS IN [facility]. SELMA CALLED [facility] AND ASKED IF THEY WOULD TRANSPORT PT TO HIS DIALYSIS CLINIC IN [place] AND THEY INDICATED THAT THEY WOULDN'T BE ABLE TO BUT THAT PT COULD BE ESTABLISHED WITH DIALYSIS IN [facility]. SELMA CALLED [facility] AND SPOKE WITH GAIL MCKNIGHT INDICATED THAT PT HAD BEEN ESTABLISHED AT [facility] FOR MWF 11:00 CHAIR TIME. SELMA SPOKE WITH TONO AT [facility] AND SENT OVER UPDATED INFORMATION FOR REVIEW FOR ADMISSION THERE. CM NOTIFIED PT'S SON. CM TO FOLLOW INDICATED WITH DC PLANNING.
--- NOTE | 2018-10-20 17:15 | NUR ---
FAXED REFERRAL TO [facility] [phone] & FAXED REFERRAL TO [facility] FOR THEIR REVIEW TOO. [facility] [place] [facility].
--- NOTE | 2018-10-20 18:12 | NUR ---
ASSUMED CARE OF PT AT 0700. PT IN DIALYSIS FROM APPROX 07:30-12:00. VSS. ALERT TO SELF AND SITUATION ONLY. SON AT BEDSIDE THROUGHOUT THE DAY. PT REPORTED BACK PAIN, PAIN MEDS GIVEN ORDERED. SKIN REDNESS AND IRRITATION NOTED AROUND GABINO AREA, NYSTATIN APPLIED ORDERED. PT IN STABLE CONDITION. NO OTHER CHANGE IN STATUS NOTED.
[2018-10-20 19:31] VITALS: BP 101/82
--- NOTE | 2018-10-21 03:14 | NUR ---
ASSUMED PT CARE 1900. PT ALERT TO SELF. REASSESSMENT COMPLETE. IV DRESSING C/D/I, NO SIGNS OF INFITLRATION. PT ALTERNATES BETWEEN LYING AND SITTING IN BED. WILLL CONTINUE POC UNTIL EOS.
[2018-10-21 04:08] VITALS: BP 11/63
[2018-10-21 09:53] VITALS: BP 109/58
--- NOTE | 2018-10-21 13:12 | NUR ---
ASSUMED CARE OF PT AT 0700. ASSESSMENT COMPLETED. ALERT TO SELF, TIME, AND SITUATION. CONFUSED AND FORGETFUL AT TIMES. DR. DUONG AT BEDSIDE THIS AM. SPOKE WITH HIM ABOUT RIGHT ARM CEPHALIC VEIN OCCULSION - ANTICOAGULATION CONTRAINDICATED, NO NEW ORDERS AT THIS TIME. CHANGED PAIN MED ORDER TO 50MG TRAMADOL, WILL GIVE ORDERED. BLEEDING STILL NOTED AT PENIS POST SHAIKH REMOVAL, BACTROBAN ORDERED. [address] TO KEEP SATS ABOVE 90%. C/O BACK PAIN, PAIN MEDS GIVEN ORDERED AND LIDOCAINE PATCH IN PLACE. SON AT BEDSIDE. NO OTHER CHANGE IN STATUS. WAITING FOR DEWAR SKILLED. WILL CONTINUE TO MONITOR.
[2018-10-21 16:46] VITALS: BP 101/51
[2018-10-21 19:51] VITALS: BP 106/55
[2018-10-21 20:36] VITALS: BP 123/99
--- NOTE | 2018-10-21 21:59 | NUR ---
RESIDENTIAL SUBCONTRACTOR CALLED AT 2032 FOR SUDDEN ONSET OF LOWER GI BLEED. SEE RESIDENTIAL SUBCONTRACTOR FLOWSHEET.
--- NOTE | 2018-10-22 08:27 | NUR ---
PT HAD A NEW SEVERE GI BLEED AT START OF SHIFT. DOCTORS NOTIFIED WELL FAMILY. FAMILY CAME TO HOSPITAL AND SIUATION WAS EXPLAINED. PT WAS ALREADY A DNR. RAT TEAM WAS CALLED--SEE RAT TEAM DOCUMENTATION. BLEEDING CONTINUED THROUGHOUT SHIFT. FAMILY WAS WITH PT--TIME OF 0630 AND WAS PRONOUNCED BY TWO NURSES. APPROPRIATE PRAPERWORK COMPLETED.
--- NOTE | 2018-10-22 11:28 | NUR ---
PT BEFORE BEGINNING OF SHIFT. IV REMOVED. TESSO CATHETER IN PLACE RIGHT CHEST - UNABLE TO REMOVE. SECURITY LEFT WITH BODY AT 11:15.
--- NOTE | 2018-10-24 15:54 | D ---
[facility] [place] [address] [address] DISCHARGE SUMMARY Name: TINO ROMERO Room #: 421-P [facility] IN M.R.#: [id number] Admission: 10/12/18 ������������������ Attend Phys: Johnie Moya MD Discharge: 10/22/18 ������������������ Date of : 29 Report #: [id number] THIS REPORT FOR: //name// CC: Charles Moya DATE OF SERVICE: 10/22/2018 FINAL DIAGNOSES: 1. End-stage renal disease. 2. Coronary artery disease. 3. Metabolic encephalopathy. 4. Fqttpv-pj-eazhzbo disease. 5. Chronic obstructive pulmonary disease. 6. Diabetes type 2. 7. Atherosclerosis. 8. Acute gastrointestinal bleed. HOSPITAL COURSE: The patient was admitted after dialysis with acute confusional state. He remained very drowsy and lethargic for a number of days. Ultimately, it was felt that he had an adverse reaction to medication given during dialysis including Benadryl. He continued to receive hemodialysis during his stay. I spoke to his son at the bedside. We entered DNR status at his request. Supportive measures were in place over about the first week or so, he gradually improved slightly. He was becoming more arousable. He was cleared for an oral diet. He was communicating some mainly with his son who he knew very well. He continued dialysis. He did improve enough to consider to begin working with physical therapy; however, his mental status was not back to baseline and he is still very confused. Plans were being put in place to transfer him to a ch[facility] facility for rehabilitation efforts and continued bedside dialysis; however, on October 22 in the morning, he developed a spontaneous GI bleed. He was hemorrhaging significantly and this led to his . DNR status was in place. ��������������������������������������������� <ELECTRONICALLY SIGNED> ���������������������������������������� By: Johnie Moya MD ��������������������������������������������� 10/24/18 1554 1433 2330 Johnie Moya MD /nt
--- NOTE | 2018-10-25 11:15 | HC ---
[facility] [place] [place] [address] CONSULTATION Name: TINO ROMERO Room #: 421-P [facility] M.R.#: [id number] Admission: 10/12/18 ������������������ Attend Phys: Johnie Moya MD Discharge: 10/22/18 ������������������ Date of : 28 Report #: [id number] THIS REPORT FOR: //name// CC: Charles Moya REASON FOR CONSULTATION: End-stage renal disease. REASON FOR PRESENTATION: Mental status issues. HISTORY OF PRESENT ILLNESS: The patient is confused and not able to provide me with details of the history. He is well known to me with numerous repeated admissions for the same situation. He dialyzes every Tuesday, Tuesday and Tuesday. He received some Benadryl during his dialysis and had some mental status issues. He was weak, lethargic and agitated with confusion and was sent to the Emergency Room for further evaluation. I am being consulted to manage his end-stage renal disease. He is utilizing a right IJ tunneled catheter even though he has a left AV fistula, but he is refusing to use it. He dialyzes every Tuesday, Tuesday and Tuesday with another dialysis unit. PAST MEDICAL HISTORY: Obtained from the medical chart: 1. End-stage renal disease, on dialysis. 2. Diabetes mellitus. 3. Hypertension. 4. Cardiomyopathy with an ejection fraction of 30%. 5. Hypertension. 6. Parotid tumor. 7. Left AV fistula. 8. Right IJ catheter. FAMILY HISTORY: Unobtainable given the patient's mental status. SOCIAL HISTORY: Unobtainable given the patient's mental status. ALLERGIES: BETADINE AND PREDNISONE. MEDICATIONS: Listed amongst his outpatient medications: 1. Plavix. 2. Metoprolol. 3. Tramadol. 4. Humalog. 5. Lantus. 6. Calcium acetate. REVIEW OF SYSTEMS: Unable to obtain given the patient's mental status. PHYSICAL EXAMINATION: [facility] [address] [place] [address] CONSULTATION Name: TINO ROMERO Room #: 421-P [facility].#: [id number] Admission: 10/12/18 ������������������ Attend Phys: Johnie Moya MD Discharge: 10/22/18 ������������������ Date of : 28 Report #: [id number] GENERAL: Alert, he is confused. VITAL SIGNS: Temperature 37.1, blood pressure 162/70. HEAD AND NECK: No jugular venous distention. Right IJ catheter present. CHEST: Crackles bilaterally. CARDIOVASCULAR: No rub. ABDOMEN: Soft, nontender. LOWER EXTREMITIES: No edema. UPPER EXTREMITIES: Left AV fistula. LABORATORY VALUES: Reviewed. Hemoglobin is 12. Sodium 137, potassium 5.7, BUN is 50, creatinine is 5. Troponin is 4.12. ASSESSMENT, IMPRESSION AND PLAN: 1. End-stage renal disease. 2. Mental status issues. 3. Hyperkalemia. 4. Diabetes mellitus. 5. Elevated troponin. 6. We will arrange for the patient to have his usual hemodialysis today. Mental status workup had been initiated. Blood cultures pending. 7. Elevated troponin, per primary team. ��������������������������������������������� <ELECTRONICALLY SIGNED> ���������������������������������������� By: Keven Schmid MD ��������������������������������������������� 10/25/18 [id number] Sonja Red MD /nt
== END 2018-10-22 11:15 | DRG 91 ==
LOC: ER 22:38 → EROBS 10-12 03:05 → 4E 10-12 03:05
PROVIDERS: Emergency Medicine; Hospitalist; Internal Medicine Nephrology; ADMIT Internal Medicine Geriatric Medicine
PROC: 5A1D70Z Performance of Urinary Filtration, Intermittent, Less than 6 Hours Per Day (ICD-10-PCS; principal; 2018-10-13)
PROC: 5A1D70Z Performance of Urinary Filtration, Intermittent, Less than 6 Hours Per Day (ICD-10-PCS; 2018-10-16)
PROC: 5A1D70Z Performance of Urinary Filtration, Intermittent, Less than 6 Hours Per Day (ICD-10-PCS; 2018-10-18)
PROC: 5A1D70Z Performance of Urinary Filtration, Intermittent, Less than 6 Hours Per Day (ICD-10-PCS; 2018-10-20)
DX: G92 Toxic encephalopathy (principal); N18.6 End stage renal disease; I13.2 Hypertensive heart and chronic kidney disease with heart failure and with stage 5 chronic kidney disease, or end stage renal disease; E87.2 Acidosis; N30.00 Acute cystitis without hematuria; F19.921 Other psychoactive substance use, unspecified with intoxication with delirium; E44.1 Mild protein-calorie malnutrition; I82.611 Acute embolism and thrombosis of superficial veins of right upper extremity; I42.9 Cardiomyopathy, unspecified; K92.2 Gastrointestinal hemorrhage, unspecified; T45.0X5A Adverse effect of antiallergic and antiemetic drugs, initial encounter; Z66 Do not resuscitate; I25.10 Atherosclerotic heart disease of native coronary artery without angina pectoris; E11.22 Type 2 diabetes mellitus with diabetic chronic kidney disease; E78.5 Hyperlipidemia, unspecified; E11.42 Type 2 diabetes mellitus with diabetic polyneuropathy; S09.90XA Unspecified injury of head, initial encounter; E11.319 Type 2 diabetes mellitus with unspecified diabetic retinopathy without macular edema; M19.90 Unspecified osteoarthritis, unspecified site; E87.5 Hyperkalemia; G31.84 Mild cognitive impairment of uncertain or unknown etiology; D63.8 Anemia in other chronic diseases classified elsewhere; I50.9 Heart failure, unspecified; W17.89XA Other fall from one level to another, initial encounter; Y93.89 Activity, other specified; Y99.8 Other external cause status; Z68.29 Body mass index [BMI] 29.0-29.9, adult; Y92.89 Other specified places as the place of occurrence of the external cause; Z99.2 Dependence on renal dialysis; Z90.79 Acquired absence of other genital organ(s); Z99.3 Dependence on wheelchair; Z87.81 Personal history of (healed) traumatic fracture; Z95.5 Presence of coronary angioplasty implant and graft; Z89.411 Acquired absence of right great toe; Z98.42 Cataract extraction status, left eye; Z98.41 Cataract extraction status, right eye; I25.2 Old myocardial infarction; Z79.02 Long term (current) use of antithrombotics/antiplatelets; Z79.4 Long term (current) use of insulin; Z79.899 Other long term (current) drug therapy; Z88.8 Allergy status to other drugs, medicaments and biological substances; Z91.041 Radiographic dye allergy status
CPT/HCPCS: 10084; 32100